=== PATIENT | female | born 1940 | race Caucasian/White ===

== ENCOUNTER 2017-09-15 14:47 | Outpatient (CLI) | payer MEDICARE | END 2017-09-15 14:48 | disposition home or self-care (01) | LOC: BICRAD 14:47 | PROVIDERS: ATTEND Internal Medicine Gastroenterology | DX: K21.9 Gastro-esophageal reflux disease without esophagitis (principal); R13.10 Dysphagia, unspecified; R05 Cough | CPT/HCPCS: 71046 ==

== ENCOUNTER 2017-09-18 07:08 | Outpatient (CLI) | payer MEDICARE ==
--- NOTE | 2017-09-18 10:39 | CT ---
CT CHEST NONCONTRAST: LOW DOSE PULMONARY LUNG SCAN: HISTORY: Lung screening. COPD. Tobacco abuse. FINDINGS: The lungs are hyperinflated with scattered areas of parenchymal scarring. This is most pronounced at the left base, where some linear atelectasis and mild elevation of the left hemidiaphragm is apparen t. Dystrophic calcifications are evident in the areas of scarring. At the left posterolateral base, in the region of scarring, a 0.4 cm, noncalcified nodule lies immedi ately deep to the pleural surface. No other parenchymal nodules. No pleural fluid or pneumothorax. Lack of contrast limits evaluation of the mediastinal structures. Nonenlarged, nonspecific lymph nod es. Prominent arterial calcification, including the coronary arteries. IMPRESSION: 1. Lung-RADS category 1-Negative. Suggest routine followup. 2. Chronic obstructive pulmonary disease. Prominent scarring at the left base may reflect old and r ecurrent inflammatory processes. 3. Atherosclerosis. POS: [facility]
--- NOTE | 2017-09-18 13:15 | RAD ---
BARIUM SWALLOW ESOPHAGRAM DOUBLE CONTRAST: Date: 09/18/17 HISTORY: 77-year-old female with dysphagia. TECHNIQUE: Upright administration of effervescent granules and thick liquid barium. Upright administration of ba rium tablet with water. Straw administration of thin liquid barium in prone BENAVIDEZ position. FINDINGS: The barium tablet becomes temporarily lodged in the pharynx for many seconds, requiring multiple repe at swallows of water to clear, then becomes momentarily lodged in the mid esophagus for a few seconds , then momentarily lodged at the esophagogastric junction for a few seconds, then passes into the sto mach before 1 minute. There is no fixed mechanical stricture. There is mild esophageal dysmotility. N o gross mucosal abnormality identified. No large esophageal diverticulum. No hiatal hernia visualized . Minimal gastroesophageal reflux witnessed momentarily. IMPRESSION: 1. Pharyngeal dysphagia. The barium tablet stays temporarily in the pharynx. Consider consultation w [facility]. 2. Mild esophageal dysmotility. 3. No high grade esophageal stricture. POS: [facility]
== END 2017-09-18 07:09 | disposition home or self-care (01) ==
LOC: RAD 07:08
PROVIDERS: ATTEND Internal Medicine Gastroenterology
DX: F17.210 Nicotine dependence, cigarettes, uncomplicated (principal); K21.9 Gastro-esophageal reflux disease without esophagitis; R13.10 Dysphagia, unspecified; R05 Cough; J44.9 Chronic obstructive pulmonary disease, unspecified; J98.4 Other disorders of lung; I25.10 Atherosclerotic heart disease of native coronary artery without angina pectoris; K22.4 Dyskinesia of esophagus; R13.13 Dysphagia, pharyngeal phase
CPT/HCPCS: 74220; G0297

== ENCOUNTER 2017-11-20 07:55 | Outpatient (CLI) | payer MEDICARE | END 2017-11-20 07:56 | disposition home or self-care (01) | LOC: BICMAMMO 07:55 | PROVIDERS: ATTEND Family Medicine | DX: Z12.31 Encounter for screening mammogram for malignant neoplasm of breast (principal); Z80.3 Family history of malignant neoplasm of breast; Z85.41 Personal history of malignant neoplasm of cervix uteri | CPT/HCPCS: 77063; 77067 ==

== ENCOUNTER 2018-05-26 10:23 | Outpatient (CLI) | payer MEDICARE ==
--- NOTE | 2018-05-27 07:29 | RAD ---
EXAM: XR Foot Lt 3 View STANDARD PROVIDED CLINICAL HISTORY: Left foot pain COMPARISON: None FINDINGS: There is a nondisplaced fracture involving the proximal fifth metatarsal which does not appear to be intra-articular. No additional fracture is evident. Alignment appears anatomic. Joint spaces appear p reserved. IMPRESSION: Fifth metatarsal fracture.
--- NOTE | 2018-05-27 12:22 | RAD ---
EXAM: XR Ankle Lt 3 View STANDARD PROVIDED CLINICAL HISTORY: Pain status post injury COMPARISON: None FINDINGS: Proximal fifth metatarsal fracture. Extensor digitorum brevis avulsion injury is noted. Plantar and p osterior calcaneal views 5 formation is noted. Alignment appears anatomic. Joint spaces appear preser kim. IMPRESSION: 1. Extensor digitorum brevis avulsion fracture. 2. Proximal fifth metatarsal fracture.
== END 2018-05-26 10:24 | disposition home or self-care (01) ==
LOC: SCSRAD 10:23
PROVIDERS: ATTEND Family Medicine
DX: M25.572 Pain in left ankle and joints of left foot (principal); M79.672 Pain in left foot; S92.355A Nondisplaced fracture of fifth metatarsal bone, left foot, initial encounter for closed fracture

== ENCOUNTER 2018-10-15 12:02 | Outpatient (CLI) | payer MEDICARE ==
--- NOTE | 2018-10-15 14:58 | MRI ---
EXAM: Lumbar spine MRI without contrast. 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 The conus medullaris region appears unremarkable. Marked type I endplate changes at L1-L2. Minimal type I endplate changes posteriorly at L2-L3. These changes are new from prior study. Postoperative changes and pedicle screws on the left side at L4 and L5. T12-L1 disc level: Unremarkable. L1-L2 disc level: Marked diffuse disc osteophytosis with moderate to severe lateral recess stenosis a nd bilateral foraminal stenosis. This is a new finding from the prior study. L2-L3 disc level: Diffuse disc osteophytosis with moderate to severe bilateral recess and bilateral f oraminal stenosis. L3-L4 disc level: Diffuse disc osteophytosis with moderately severe central canal, severe lateral rec ess, and moderately severe bilateral foraminal stenosis. L4-L5 disc level: Postoperative changes with mild central canal and lateral recess stenosis and moder ate bilateral foraminal stenosis. L5-S1 disc level: Mild central canal and lateral recess stenosis and foraminal stenosis. IMPRESSION: New fairly extensive disc osteophytosis at L1-L2 with associated stenosis. New type I endplate changes at L1-L2 and L2-L3. Stable postop changes at L4-L5. Stenotic changes at L2-L3 and L3-L4 levels showing some worsening at L3-L4.
--- NOTE | 2018-10-15 15:08 | MRI ---
CERVICAL SPINE MRI WITHOUT CONTRAST: Date: 10/15/18 COMPARISON: None. HISTORY: Cervical radiculopathy, neck pain. TECHNIQUE: Multiplanar, multisequence MR imaging of cervical spine obtained without contrast. FINDINGS: The sagittal STIR imaging demonstrates no focal area of osseous marrow edema. There is mid/moderate degenerative change at the atlantoaxial interspace. C2-3: There is disc space narrowing and disc desiccation with mild disc bulge and bilateral facet hy pertrophy. There is a small superimposed right paracentral disc protrusion. No significant central ca nal stenosis. Mild bilateral neural foraminal stenosis. C3-4: There is disc space narrowing, disc desiccation, and disc bulge with partial effacement of the ventral thecal sac and mild central canal stenosis. There is bilateral facet and uncovertebral osteo phyte formation, right greater than left. Mild bilateral neural foraminal stenosis. C4-5: There is disc space narrowing and disc desiccation with a prominent central disc protrusion ef facing the ventral thecal sac and abutting the ventral aspect of the cord with a moderate/severe degr ee of central canal stenosis and mild cord flattening. There is mild bilateral neural foraminal steno sis on the basis of facet and uncovertebral osteophyte formation. C5-6: There is disc space narrowing, disc desiccation, and disc bulge effacing the ventral thecal sa c and causing moderate central canal stenosis. Moderate bilateral neural foraminal stenosis noted on the basis of facet and uncovertebral osteophyte formation. C6-7: There is disc space narrowing, disc desiccation, and disc bulge with effacement of the ventral thecal sac, and moderate central canal stenosis. Bilateral facet hypertrophy noted with mild/moderat e bilateral neural foraminal stenosis, right greater than left. C7-T1: Disc desiccation and mild disc bulge with no central canal or neural foraminal stenosis. No focal area of abnormal signal intensity is identified within the cervical cord. IMPRESSION: Prominent multilevel degenerative change noted within the cervical spine, most significant at C4-5 as detailed above. POS: [facility]
== END 2018-10-15 12:03 | disposition home or self-care (01) ==
LOC: BICMRI 12:02
PROVIDERS: ATTEND Specialist
DX: M47.22 Other spondylosis with radiculopathy, cervical region (principal); M51.16 Intervertebral disc disorders with radiculopathy, lumbar region; M48.061 Spinal stenosis, lumbar region without neurogenic claudication; Z98.890 Other specified postprocedural states
CPT/HCPCS: 72141; 72148

== ENCOUNTER 2018-11-22 12:33 | Outpatient (CLI) | payer MEDICARE ==
--- NOTE | 2018-11-22 15:50 | MMO ---
Bilateral MAMMO Bilat Screen [facility]. CLINICAL HISTORY: Patient is 78 years old and is seen for screening. The patient has the following family history of breast cancer: sister, BREAST - LUNG. The patient has a history of cervical cancer at age 30. VIEWS: The views performed were: bilateral craniocaudal with tomosynthesis and bilateral mediolateral oblique with tomosynthesis. FILMS COMPARED: The present examination has been compared to prior imaging studies performed at [facility] on 10/02/2014, 10/04/2014, 11/18/2016 and 11/20/2017. This study has been interpreted with the assistance of computer-aided detection. MAMMOGRAM FINDINGS: The breasts are heterogeneously dense, which could obscure a lesion on mammography. Benign calcifications are noted bilaterally. Stable right subaerolar mass. There are no suspicious masses, suspicious calcifications, or new areas of architectural distortion. IMPRESSION: THERE IS NO MAMMOGRAPHIC EVIDENCE OF MALIGNANCY. A ROUTINE FOLLOW-UP MAMMOGRAM IN 1 YEAR IS RECOMMENDED. THE RESULTS OF THIS EXAM WERE SENT TO THE PATIENT. ACR BI-RADS Category 2 - Benign finding MAMMOGRAPHY NOTE: 1. A negative mammogram report should not delay a biopsy if a dominant of clinically suspicious mass is present. 2. Approximately 10% to 15% of breast cancers are not detected by mammography. 3. Adenosis and dense breasts may obscure an underlying neoplasm. Reported by: DAMION FIGUEROA MD Electonically Signed: [id number]
== END 2018-11-22 12:34 | disposition home or self-care (01) ==
LOC: BICMAMMO 12:33
PROVIDERS: ATTEND Family Medicine
DX: Z12.31 Encounter for screening mammogram for malignant neoplasm of breast (principal); Z80.3 Family history of malignant neoplasm of breast; Z85.41 Personal history of malignant neoplasm of cervix uteri
CPT/HCPCS: 77063; 77067

== ENCOUNTER 2019-02-24 10:36 | Outpatient (CLI) | payer MEDICARE ==
--- NOTE | 2019-02-24 11:55 | RAD ---
LUMBAR SPINE RADIOGRAPHS 3 VIEWS: DATE: 02/24/2019. PROVIDED CLINICAL HISTORY: Spondylosis. FINDINGS: Comparison 10/30/2006. Neutral lateral, flexion lateral, and extension lateral radiographs of the lum bar spine are submitted. Lumbar alignment appears normal. There is no evidence for abnormal transla tional motion with flexion and extension. Vertebral body heights are preserved. Postoperative sung es at L4-5 are again seen. Extensive vascular calcifications are noted. Multilevel lumbar degenerat ant disk change. IMPRESSION: As above. POS: [facility]
== END 2019-02-24 10:37 | disposition home or self-care (01) ==
LOC: RAD 10:36
PROVIDERS: ATTEND Nurse Practitioner Family
DX: M47.816 Spondylosis without myelopathy or radiculopathy, lumbar region (principal); M51.36 Other intervertebral disc degeneration, lumbar region; I70.90 Unspecified atherosclerosis; Z98.890 Other specified postprocedural states
CPT/HCPCS: 72100

== ENCOUNTER 2020-10-23 20:09 | Inpatient (IN) | payer MEDICARE ==
[2020-10-23] MEDS ORDERED: Diltiazem 125 MG/25 ML ONE (20:31)
[2020-10-23 21:07] LABS: #Eosinphils 0.2 thou/uL (0.0-0.7); #Lymphocytes 1.2 thou/uL (1.20-3.40); #Monocytes 0.5 thou/uL (0.11-0.59); #Neutrophils 5.5 thou/uL (1.40-6.50); %Basophils 0.4 % (0.0-1.0); %Eosinophils 2.4 % (0.0-10.0); %Lymphocytes 16.6 % (21.0-51.0); %Neutrophils 73.6 % (42.0-75.0); Hemoglobin 14.8 g/dL (12.0-16.0); Mean Corpuscular HGB CONC 33.3 g/dL (32.0-36.0); Mean Corpuscular Hemoglobin 31.5 pg (27.0-31.0); Mean Corpuscular Volume 94.5 fL (78.0-98.0); Mean Platelet Volume 7.7 fL (7.4-10.4); Platelet Count 243 thou/uL (130-400); RBC Distribution Width 12.8 % (11.5-14.5); White Blood Cell (WBC) Count 7.4 thou/uL (4.8-10.8)
[2020-10-23 21:28] LABS: ALT (SGPT) 38 U/L (8-55); AST (SGOT) 38 U/L (5-34); Albumin 3.7 g/dL (3.4-4.8); Alkaline Phosphatase 85 U/L (40-110); Anion Gap 16 mmol/L (10-20); BUN (Urea Nitrogen) 12 mg/dL (9.8-20.1); Bilirubin, Total 0.5 mg/dL (0.2-1.2); Calc. Creatinine Clearance 0 mL/min (70-130); Calcium 9.6 mg/dL (7.8-10.44); Carbon Dioxide 25 mmol/L (23-31); Chloride 98 mmol/L (98-107); Globulin 3.2 g/dL (2.4-3.5); Glucose 107 mg/dL (83-110); Potassium 4.7 mmol/L (3.5-5.1); Protein, Total 6.9 g/dL (5.8-8.1); Sodium 134 mmol/L (136-145)
[2020-10-23] MEDS ORDERED: oxyCODONE ER 20 MG TAB PO SCH (21:30)
[2020-10-23] MEDS ORDERED: Gabapentin 300 MG CAP PO SCH (21:30)
[2020-10-23 23:22] LABS: PTT 31.4 sec (22.9-36.1); Prothrombin Time 13.5 sec (12.0-14.7)
[2020-10-23] MEDS ORDERED: Bisacodyl 5 MG TAB PO PRN (23:29)
[2020-10-23] MEDS ORDERED: Ondansetron ODT 4 MG TAB PO PRN (23:29)
[2020-10-23] MEDS ORDERED: HYDROcodone/Acetaminophen 5/325 mg Tablet PO PRN (23:29)
[2020-10-23] MEDS ORDERED: Senokot S 8.6-50 MG TAB PO PRN (23:29)
[2020-10-23] MEDS ORDERED: HYDROcodone/Acetaminophen 10/325 mg Tablet PO PRN (23:29)
[2020-10-23] MEDS ORDERED: Communication Order-Pharmacy FS ONE (23:41)
[2020-10-23 23:49] LABS: Troponin I 0.013 ng/mL (< 0.028)
[2020-10-24] MEDS ORDERED: Melatonin 3 MG TAB PO PRN (00:05)
[2020-10-24] MEDS ORDERED: Labetalol HCl 100 MG/20 ML VIAL SLOW IVP PRN (00:06)
[2020-10-24] MEDS ORDERED: Diltiazem 125 MG in Sodium Chloride 0.9% 100 ML IVPB SCH (00:15)
[2020-10-24] MEDS ORDERED: Fluticasone Propionate Nasal Spray 16 gm Bottle NASAL PRN (00:28)
[2020-10-24] MEDS ORDERED: Enoxaparin Sodium 60 MG/0.6 ML SYRINGE ONE ×2 (00:34→08:59)
[2020-10-24 00:45] LABS: SARS-CoV-2 NAA Rapid Test Not Detected (NotDetected)
[2020-10-24] MEDS ORDERED: Furosemide 40 MG/4 ML VIAL SLOW IVP SCH (02:30)
[2020-10-24] MEDS: Nicotine 21 MG PATCH TD SCH (02:51)
[2020-10-24] MEDS ORDERED: Furosemide 40 MG/4 ML VIAL ONE (02:52)
[2020-10-24] MEDS ORDERED: Furosemide 20 MG/2 ML VIAL ONE ×2 (02:53→08:59)
[2020-10-24 03:10] LABS: #Eosinphils 0.1 thou/uL (0.0-0.7); #Lymphocytes 1.4 thou/uL (1.20-3.40); #Monocytes 0.5 thou/uL (0.11-0.59); %Basophils 0.6 % (0.0-1.0); %Eosinophils 1.8 % (0.0-10.0); %Lymphocytes 19.9 % (21.0-51.0); %Monocytes 7.5 % (0.0-10.0); %Neutrophils 70.2 % (42.0-75.0); Hemoglobin 13.8 g/dL (12.0-16.0); Mean Corpuscular HGB CONC 32.2 g/dL (32.0-36.0); Mean Corpuscular Hemoglobin 30.9 pg (27.0-31.0); Mean Corpuscular Volume 95.8 fL (78.0-98.0); Mean Platelet Volume 7.9 fL (7.4-10.4); Platelet Count 212 thou/uL (130-400); RBC Distribution Width 12.8 % (11.5-14.5); Red Blood Cell (RBC) Count 4.47 mill/uL (4.20-5.40); White Blood Cell (WBC) Count 7.1 thou/uL (4.8-10.8)
[2020-10-24 03:30] LABS: ALT (SGPT) 35 U/L (8-55); AST (SGOT) 32 U/L (5-34); Albumin 3.3 g/dL (3.4-4.8); Alkaline Phosphatase 68 U/L (40-110); Anion Gap 13 mmol/L (10-20); BUN (Urea Nitrogen) 11 mg/dL (9.8-20.1); Bilirubin, Total 0.4 mg/dL (0.2-1.2); Calc. Creatinine Clearance 50 mL/min (70-130); Calcium 8.9 mg/dL (7.8-10.44); Carbon Dioxide 22 mmol/L (23-31); Chloride 101 mmol/L (98-107); Globulin 2.7 g/dL (2.4-3.5); Glucose 97 mg/dL (83-110); Potassium 4.4 mmol/L (3.5-5.1); Sodium 132 mmol/L (136-145)
[2020-10-24 03:34] LABS: Troponin I Less than 0.010 ng/mL (< 0.028)
[2020-10-24] MEDS ORDERED: Aspirin Chewable 81 MG TAB ONE (08:59)
[2020-10-24] MEDS ORDERED: Nitroglycerin 0.4 MG TAB (25 Tab Bottle) SL PRN (09:19)
[2020-10-24] MEDS ORDERED: Benzonatate 100 MG CAP PO PRN (09:24)
[2020-10-24] MEDS: Polyethylene Glycol 3350 17 GM Packet PO SCH (09:58)
[2020-10-24] MEDS: Furosemide 20 MG/2 ML VIAL SLOW IVP SCH ×2 (09:58→17:42)
[2020-10-24] MEDS: Aspirin 81 mg Enteric Coated Tablet PO SCH (09:58)
[2020-10-24] MEDS: Enoxaparin Sodium 60 MG/0.6 ML SYRINGE SC SCH ×2 (09:58→21:38)
[2020-10-24 10:09] LABS: Troponin I 0.018 ng/mL (< 0.028)
[2020-10-24] MEDS ORDERED: cefTRIAXone\\ROCEPHIN 1 GM in Sodium Chloride 0.9% 100 ML IVPB SCH ×2 (11:00→18:00)
[2020-10-24] MEDS ORDERED: traMADol HCl 50 MG TAB PO PRN (12:30)
[2020-10-24] MEDS: Levothyroxine Sodium 75 MCG TAB PO SCH (12:39)
[2020-10-24] MEDS ORDERED: Azithromycin 500 MG VIAL ONE (12:49)
[2020-10-24] MEDS: Azithromycin 500 MG in Sodium Chloride 0.9% 250 ML 250 ML IVPB SCH (13:13)
[2020-10-24 15:32] VITALS: BMI 17.4
[2020-10-24] MEDS ORDERED: Diltiazem HCl SR 60 mg Capsule PO SCH (21:00)
[2020-10-25] MEDS: Nicotine 21 MG PATCH TD SCH ×2 (00:09→23:07)
[2020-10-25 05:20] LABS: #Eosinphils 0.1 thou/uL (0.0-0.7); #Lymphocytes 1.1 thou/uL (1.20-3.40); #Monocytes 0.6 thou/uL (0.11-0.59); #Neutrophils 5.7 thou/uL (1.40-6.50); %Basophils 0.5 % (0.0-1.0); %Eosinophils 1.7 % (0.0-10.0); %Lymphocytes 14.2 % (21.0-51.0); %Monocytes 8.2 % (0.0-10.0); %Neutrophils 75.4 % (42.0-75.0); Hemoglobin 14.2 g/dL (12.0-16.0); Mean Corpuscular HGB CONC 31.2 g/dL (32.0-36.0); Mean Corpuscular Hemoglobin 29.5 pg (27.0-31.0); Mean Corpuscular Volume 94.5 fL (78.0-98.0); Mean Platelet Volume 7.7 fL (7.4-10.4); Platelet Count 222 thou/uL (130-400); RBC Distribution Width 12.5 % (11.5-14.5); Red Blood Cell (RBC) Count 4.81 mill/uL (4.20-5.40); White Blood Cell (WBC) Count 7.5 thou/uL (4.8-10.8)
[2020-10-25 05:43] LABS: Anion Gap 10 mmol/L (10-20); BUN (Urea Nitrogen) 12 mg/dL (9.8-20.1); Calc. Creatinine Clearance 52 mL/min (70-130); Carbon Dioxide 32 mmol/L (23-31); Chloride 98 mmol/L (98-107); Glucose 89 mg/dL (83-110); Sodium 137 mmol/L (136-145)
[2020-10-25 05:47] LABS: Potassium 2.9 mmol/L (3.5-5.1)
[2020-10-25] MEDS: Levothyroxine Sodium 75 MCG TAB PO SCH (05:47)
[2020-10-25] MEDS ORDERED: Potassium Chloride 20 MEQ TAB PO SCH (06:15)
[2020-10-25] MEDS ORDERED: Diltiazem 125 MG in Sodium Chloride 0.9% 100 ML IVPB SCH (06:24)
[2020-10-25 08:14] LABS: Bacteria/HPF None Seen HPF (None Seen); Bilirubin Negative (Negative); Blood, Urine Negative (Negative); Clarity Clear (Clear); Glucose, Urine (Dipstick) Normal (Negative); Ketone, Urine Trace mg/dL (Negative); Leukocyte Negative Leu/uL (Negative); Nitrite Negative (Negative); Protein, Urine (Dipstick) Negative (Neg-Trace); RBC/HPF 0-3 HPF (0-3); Specific Gravity, Urine 1.011 (1.002-1.036); Squamous Epithelial 0-3 HPF (0-3); Urobilinogen Normal mg/dL (Less than 2); WBC/HPF 0-3 HPF (0-3)
[2020-10-25 08:16] LABS: Urine Culture Reflex No No
[2020-10-25 08:20] LABS: Strep pneumo Urine Ag NEGATIVE (NEGATIVE)
[2020-10-25] MEDS: Enoxaparin Sodium 60 MG/0.6 ML SYRINGE SC SCH ×2 (08:28→23:08)
[2020-10-25] MEDS: Polyethylene Glycol 3350 17 GM Packet PO SCH (08:28)
[2020-10-25] MEDS: Diltiazem HCl SR 60 mg Capsule PO SCH ×3 (08:29→23:08)
[2020-10-25] MEDS: Furosemide 20 MG/2 ML VIAL SLOW IVP SCH ×2 (08:29→17:23)
[2020-10-25] MEDS: Aspirin 81 mg Enteric Coated Tablet PO SCH (08:29)
[2020-10-25] MEDS: Gabapentin 300 MG CAP PO SCH (08:29)
[2020-10-25] MEDS: Azithromycin 500 MG in Sodium Chloride 0.9% 250 ML 250 ML IVPB SCH (10:20)
[2020-10-25] MEDS: Acetaminophen 325 MG TAB PO PRN (18:55)
[2020-10-25] MEDS ORDERED: VYTORIN PO SCH (21:00)
[2020-10-25] MEDS ORDERED: Gabapentin 300 MG CAP PO SCH (22:45)
[2020-10-25] MEDS: Cefdinir 300 MG CAP PO SCH (23:07)
[2020-10-26] MEDS: Levothyroxine Sodium 75 MCG TAB PO SCH (05:25)
[2020-10-26] MEDS ORDERED: Diltiazem HCl SR 60 mg Capsule PO SCH ×2 (06:00→06:14)
[2020-10-26] MEDS: Gabapentin 300 MG CAP PO SCH (08:20)
[2020-10-26] MEDS: Cefdinir 300 MG CAP PO SCH (08:21)
[2020-10-26] MEDS: Polyethylene Glycol 3350 17 GM Packet PO SCH (08:21)
[2020-10-26] MEDS: Aspirin 81 mg Enteric Coated Tablet PO SCH (08:21)
[2020-10-26] MEDS: Enoxaparin Sodium 60 MG/0.6 ML SYRINGE SC SCH (08:21)
[2020-10-26] MEDS: Furosemide 20 MG/2 ML VIAL SLOW IVP SCH (08:21)
[2020-10-26] MEDS ORDERED: Diltiazem HCl SR 90 mg Capsule PO SCH ×2 (08:45→14:00)
[2020-10-26] MEDS ORDERED: Azithromycin 250 MG TAB PO SCH (10:00)
[2020-10-26 12:16] LABS: #Lymphocytes 0.7 thou/uL (1.20-3.40); #Monocytes 0.4 thou/uL (0.11-0.59); #Neutrophils 4.9 thou/uL (1.40-6.50); %Basophils 0.7 % (0.0-1.0); %Eosinophils 0.6 % (0.0-10.0); %Lymphocytes 12.1 % (21.0-51.0); %Monocytes 6.3 % (0.0-10.0); %Neutrophils 80.3 % (42.0-75.0); Hemoglobin 13.8 g/dL (12.0-16.0); Mean Corpuscular HGB CONC 32.3 g/dL (32.0-36.0); Mean Corpuscular Hemoglobin 30.9 pg (27.0-31.0); Mean Corpuscular Volume 95.8 fL (78.0-98.0); Mean Platelet Volume 7.9 fL (7.4-10.4); Platelet Count 227 thou/uL (130-400); RBC Distribution Width 12.7 % (11.5-14.5); Red Blood Cell (RBC) Count 4.46 mill/uL (4.20-5.40); White Blood Cell (WBC) Count 6.1 thou/uL (4.8-10.8)
[2020-10-26 12:40] LABS: BUN (Urea Nitrogen) 12 mg/dL (9.8-20.1); Calc. Creatinine Clearance 42 mL/min (70-130); Calcium 8.9 mg/dL (7.8-10.44); Carbon Dioxide 34 mmol/L (23-31); Chloride 96 mmol/L (98-107); Glucose 186 mg/dL (83-110); Potassium 3.6 mmol/L (3.5-5.1); Sodium 137 mmol/L (136-145)
[2020-10-26 12:46] LABS: Anion Gap 11 mmol/L (10-20)
[2020-10-26] MEDS: Acetaminophen 325 MG TAB PO PRN (15:09)
[2020-10-26 15:46] VITALS: TEMP 98.3
[2020-10-26 16:18] VITALS: BP 123/64
[2020-10-26] MEDS ORDERED: Apixaban 2.5 MG TAB PO SCH (21:00)
[2020-10-26] MEDS ORDERED: Gabapentin 300 MG CAP PO SCH (21:00)
[2020-10-26] MEDS ORDERED: Nicotine 21 MG PATCH TD SCH (22:00)
[2020-10-27 13:38] LABS: L.pneumophilia Abs <0.91 OD ratio (0.00-0.90)
== END 2020-10-26 16:55 | disposition home or self-care (01) | DRG 280 ==
LOC: ERS 20:09 → ERHOLD 22:30 → 2NO 10-24 14:10
PROVIDERS: ADMIT Student in an Organized Health Care Education/Training Program; ATTEND Internal Medicine
DX: I48.91 Unspecified atrial fibrillation (principal); J18.9 Pneumonia, unspecified organism; I21.A1 Myocardial infarction type 2; J96.01 Acute respiratory failure with hypoxia; J44.1 Chronic obstructive pulmonary disease with (acute) exacerbation; J44.0 Chronic obstructive pulmonary disease with (acute) lower respiratory infection; E87.1 Hypo-osmolality and hyponatremia; I11.0 Hypertensive heart disease with heart failure; Z66 Do not resuscitate; Z20.822 Contact with and (suspected) exposure to COVID-19; G89.29 Other chronic pain; I73.9 Peripheral vascular disease, unspecified; E03.9 Hypothyroidism, unspecified; I50.9 Heart failure, unspecified; Z96.641 Presence of right artificial hip joint; Z96.611 Presence of right artificial shoulder joint; Z96.1 Presence of intraocular lens; F17.210 Nicotine dependence, cigarettes, uncomplicated; M19.90 Unspecified osteoarthritis, unspecified site; F41.9 Anxiety disorder, unspecified; E87.6 Hypokalemia; I34.0 Nonrheumatic mitral (valve) insufficiency; E88.09 Other disorders of plasma-protein metabolism, not elsewhere classified; Z90.49 Acquired absence of other specified parts of digestive tract; Z90.710 Acquired absence of both cervix and uterus; Z88.2 Allergy status to sulfonamides; Z88.8 Allergy status to other drugs, medicaments and biological substances; Z88.1 Allergy status to other antibiotic agents; Z91.030 Bee allergy status; Z79.82 Long term (current) use of aspirin; Z79.51 Long term (current) use of inhaled steroids; Z79.899 Other long term (current) drug therapy; Z71.6 Tobacco abuse counseling; E87.70 Fluid overload, unspecified
CPT/HCPCS: 36415; 71045; 80048; 80053; 81001; 83880; 84443; 84484; 85025; 85610; 85730; 86713; 87040; 87449; 93005; 93306; 96365; 96366; 96372; 96376; J0456; J0696; J1650; J1940; J3490; J7050; U0002

== ENCOUNTER 2021-02-14 12:48 | Outpatient (CLI) | payer MEDICARE ==
[2021-02-14 14:18] LABS: #Basophils 0.1 10x3/uL (0.0-0.2); #Eosinphils 0.1 10x3/uL (0.0-0.5); #Monocytes 0.7 10x3/uL (0.0-1.1); #Neutrophils 4.7 10x3/uL (1.5-8.4); %Basophils 1.2 % (0.0-2.0); %Eosinophils 0.7 % (0.0-6.0); %Lymphocytes 19.6 % (18.0-47.0); %Monocytes 9.8 % (0.0-10.0); %Neutrophils 68.3 % (40.0-75.0); Hemoglobin 12.3 g/dL (12.0-15.5); Mean Corpuscular HGB CONC 31.8 g/dL (32.0-36.0); Mean Corpuscular Hemoglobin 28.6 pg (27.0-33.0); Mean Platelet Volume 9.9 fl (7.4-10.4); Platelet Count 345 10x3/uL (150-450); White Blood Cell (WBC) Count 6.9 10x3/uL (3.5-10.5)
[2021-02-14 14:44] LABS: Anion Gap 14 mmol/L (10-20); BUN (Urea Nitrogen) 9 mg/dL (9.8-20.1); Calc. Creatinine Clearance 0 mL/min (70-130); Calcium 8.8 mg/dL (7.8-10.44); Carbon Dioxide 31 mmol/L (23-31); Chloride 95 mmol/L (98-107); Glucose 86 mg/dL (83-110); Potassium 3.7 mmol/L (3.5-5.1); Sodium 136 mmol/L (136-145)
[2021-02-14 16:54] LABS: Hemoglobin A1c 6.1 % (4.0-6.0)
[2021-02-15 11:36] LABS: SARS-CoV-2 PCR by NAA Not Detected (NotDetected)
== END 2021-02-14 12:49 | disposition home or self-care (01) ==
LOC: LABBT 12:48
PROVIDERS: ATTEND Specialist
DX: Z01.818 Encounter for other preprocedural examination (principal); K62.3 Rectal prolapse; Z20.822 Contact with and (suspected) exposure to COVID-19
CPT/HCPCS: 80048; 83036; 85025; 93005; U0003; U0005; 93010

== ENCOUNTER 2021-02-14 13:00 | Inpatient (IN) | payer MEDICARE ==
[2021-02-19] MEDS ORDERED: cefOXitin Sodium/Dextrose 2 GM/50 ML BAG ONE ×2 (06:23→10:22)
[2021-02-19] MEDS ORDERED: Acetaminophen 500 MG TAB ONE (06:23)
[2021-02-19] MEDS ORDERED: Sodium Chloride 0.9% 0 ML ONE (06:23)
[2021-02-19] MEDS ORDERED: Ketorolac Tromethamine 30 MG/ML VIAL ONE ×2 (06:23→17:11)
[2021-02-19] MEDS ORDERED: Bupivacaine 0.5% 10 ML VIAL ONE (06:35)
[2021-02-19] MEDS ORDERED: Fentanyl 100 MCG/2 ML VIAL ONE ×5 (06:37→12:22)
[2021-02-19] MEDS ORDERED: Lidocaine 1% (PF) 30 ML VIAL ONE (06:37)
[2021-02-19] MEDS ORDERED: Bupivacaine PF 0.5% 30 ML VIAL ONE (06:37)
[2021-02-19] MEDS ORDERED: Midazolam HCl 2 mg/2 ml Vial ONE (06:37)
[2021-02-19] MEDS ORDERED: Famotidine/PF 20 mg/2ml Vial ONE (06:52)
[2021-02-19] MEDS ORDERED: Xylocaine 1% w/ Epi 1:100K 10 ML VIAL ONE ×2 (07:10→07:48)
[2021-02-19] MEDS ORDERED: Bupivacaine 0.25% 10 ML VIAL ONE ×3 (07:10→07:16)
[2021-02-19] MEDS ORDERED: Dexamethasone 4 mg/ml Vial ONE (07:14)
[2021-02-19] MEDS ORDERED: Phenylephrine 10 MG/ML VIAL ONE ×2 (07:46→07:56)
[2021-02-19] MEDS ORDERED: Ondansetron PF 4 MG/2 ML Vial ONE (07:56)
[2021-02-19] MEDS ORDERED: Dexamethasone 20 MG/5 ML VIAL ONE (07:56)
[2021-02-19] MEDS ORDERED: Lidocaine 1% PF 5 ML VIAL ONE (07:56)
[2021-02-19] MEDS ORDERED: PROPOFOL 200 MG/20 ML VIAL ONE (07:56)
[2021-02-19] MEDS ORDERED: Glycopyrrolate 0.2 MG/ML 5 ML SYRINGE ONE (07:56)
[2021-02-19] MEDS ORDERED: Rocuronium Bromide 10 MG/ML (10ML VIAL) ONE (07:56)
[2021-02-19] MEDS ORDERED: Metoprolol Tartrate 5 MG/5 ML VIAL ONE (07:56)
[2021-02-19] MEDS ORDERED: Promethazine HCl 25 MG/ML VIAL IVPB PRN (10:27)
[2021-02-19] MEDS ORDERED: PACU-Morphine 4MG/ML VIAL SLOW IVP PRN (10:27)
[2021-02-19] MEDS ORDERED: Promethazine HCl 25 MG/ML VIAL IM PRN ×2 (10:27→11:28)
[2021-02-19] MEDS ORDERED: Ondansetron PF 4 MG/2 ML Vial IVP PRN (11:28)
[2021-02-19] MEDS ORDERED: hydrALAZINE 20 MG/ML VIAL SLOW IVP PRN (11:28)
[2021-02-19] MEDS ORDERED: Insulin Regular 300 UNITS/3 ML VIAL SC PRN (11:28)
[2021-02-19] MEDS ORDERED: Morphine 4 MG/ML VIAL ONE ×3 (11:59→17:11)
[2021-02-19] MEDS ORDERED: Dextrose 50% Abboject 50 ML SYRINGE IVP PRN (12:00)
[2021-02-19] MEDS ORDERED: Dextrose 5% in Water 1,000 ML IV PRN (12:00)
[2021-02-19] MEDS: Morphine 4 MG/ML VIAL SLOW IVP PRN ×2 (13:56→21:53)
[2021-02-19] MEDS ORDERED: Fluticasone Propionate Nasal Spray 16 gm Bottle NASAL PRN (14:01)
[2021-02-19] MEDS ORDERED: D5 1/2 NS w/20 mEq KCL 1,000 ML ONE (19:11)
[2021-02-19] MEDS ORDERED: Sodium Chloride 0.9% 10 ML ONE (19:16)
[2021-02-19] MEDS ORDERED: HYDROcodone/Acetaminophen 5/325 mg Tablet ONE (19:18)
[2021-02-19] MEDS: D5 1/2 NS w/20 mEq KCL 1,000 ML IV SCH ×2 (21:49→22:06)
[2021-02-19] MEDS: Ketorolac Tromethamine 30 MG/ML VIAL IVP SCH (21:49)
[2021-02-19] MEDS: Gabapentin 300 MG CAP PO SCH (21:54)
[2021-02-19] MEDS: Famotidine 20 MG TAB PO SCH (21:54)
[2021-02-19] MEDS: Famotidine/PF 20 mg/2ml Vial SLOW IVP SCH (21:54)
[2021-02-20] MEDS: Ketorolac Tromethamine 30 MG/ML VIAL IVP SCH ×4 (00:39→17:40)
[2021-02-20] MEDS: Enoxaparin Sodium 30 MG/0.3 ML SYRINGE SC SCH ×2 (00:51→22:04)
[2021-02-20 01:38] VITALS: BMI 19.5
[2021-02-20] MEDS: Morphine 4 MG/ML VIAL SLOW IVP PRN ×3 (03:42→13:18)
[2021-02-20 04:40] LABS: #Lymphocytes 0.6 thou/uL (1.20-3.40); #Monocytes 0.6 thou/uL (0.11-0.59); #Neutrophils 12.9 thou/uL (1.40-6.50); %Eosinophils 0.1 % (0.0-10.0); %Lymphocytes 4.5 % (21.0-51.0); %Monocytes 4.5 % (0.0-10.0); Hemoglobin 10.9 g/dL (12.0-16.0); Mean Corpuscular Hemoglobin 30.1 pg (27.0-31.0); Mean Corpuscular Volume 91.2 fL (78.0-98.0); Mean Platelet Volume 6.7 fL (7.4-10.4); Platelet Count 298 thou/uL (130-400); RBC Distribution Width 13.4 % (11.5-14.5); Red Blood Cell (RBC) Count 3.63 mill/uL (4.20-5.40); White Blood Cell (WBC) Count 14.2 thou/uL (4.8-10.8)
[2021-02-20 05:04] LABS: Anion Gap 12 mmol/L (10-20); BUN (Urea Nitrogen) 18 mg/dL (9.8-20.1); Calc. Creatinine Clearance 32 mL/min (70-130); Calcium 8.7 mg/dL (7.8-10.44); Carbon Dioxide 28 mmol/L (23-31); Chloride 89 mmol/L (98-107); Glucose 197 mg/dL (83-110); Potassium 3.8 mmol/L (3.5-5.1); Sodium 125 mmol/L (136-145)
[2021-02-20] MEDS: Levothyroxine Sodium 75 MCG TAB PO SCH (05:21)
[2021-02-20] MEDS ORDERED: NS 0.9% w/ 20 MEQ KCL 1,000 ML/1,000 ML BAG IV SCH (08:00)
[2021-02-20] MEDS: Gabapentin 300 MG CAP PO SCH ×2 (10:02→20:55)
[2021-02-20] MEDS: NS 0.9% w/ 20 MEQ KCL 1,000 ML/1,000 ML BAG IV SCH ×2 (10:07→17:41)
[2021-02-20] MEDS: D5 1/2 NS w/20 mEq KCL 1,000 ML IV SCH (18:33)
[2021-02-20] MEDS: Famotidine/PF 20 mg/2ml Vial SLOW IVP SCH (20:55)
[2021-02-20] MEDS: Famotidine 20 MG TAB PO SCH (20:59)
[2021-02-21] MEDS: Ketorolac Tromethamine 30 MG/ML VIAL IVP SCH ×2 (00:11→05:34)
[2021-02-21] MEDS: NS 0.9% w/ 20 MEQ KCL 1,000 ML/1,000 ML BAG IV SCH (02:20)
[2021-02-21] MEDS: Levothyroxine Sodium 75 MCG TAB PO SCH (05:34)
[2021-02-21 06:45] LABS: Anion Gap 14 mmol/L (10-20); BUN (Urea Nitrogen) 27 mg/dL (9.8-20.1); Calc. Creatinine Clearance 24 mL/min (70-130); Calcium 8.6 mg/dL (7.8-10.44); Carbon Dioxide 23 mmol/L (23-31); Chloride 93 mmol/L (98-107); Glucose 75 mg/dL (83-110); Potassium 5.5 mmol/L (3.5-5.1); Sodium 124 mmol/L (136-145)
[2021-02-21] MEDS: Morphine 4 MG/ML VIAL SLOW IVP PRN ×3 (06:53→21:29)
[2021-02-21] MEDS ORDERED: Sodium Chloride 0.9% 1,000 ML IV SCH (09:15)
[2021-02-21] MEDS: Gabapentin 300 MG CAP PO SCH ×2 (10:39→21:21)
[2021-02-21] MEDS ORDERED: Acetaminophen 650 MG/20.3 ML UDCUP PO PRN (10:45)
[2021-02-21 14:09] LABS: #Lymphocytes 1.4 thou/uL (1.20-3.40); #Monocytes 1.1 thou/uL (0.11-0.59); #Neutrophils 9.7 thou/uL (1.40-6.50); %Basophils 0.3 % (0.0-1.0); %Eosinophils 0.1 % (0.0-10.0); %Lymphocytes 11.7 % (21.0-51.0); %Monocytes 8.8 % (0.0-10.0); %Neutrophils 79.1 % (42.0-75.0); Hemoglobin 13.6 g/dL (12.0-16.0); Mean Corpuscular HGB CONC 31.7 g/dL (32.0-36.0); Mean Corpuscular Hemoglobin 30.2 pg (27.0-31.0); Mean Corpuscular Volume 95.4 fL (78.0-98.0); Mean Platelet Volume 7.3 fL (7.4-10.4); Platelet Count 299 thou/uL (130-400); RBC Distribution Width 13.9 % (11.5-14.5); White Blood Cell (WBC) Count 12.2 thou/uL (4.8-10.8)
[2021-02-21 14:28] LABS: ALT (SGPT) 382 U/L (8-55); AST (SGOT) 757 U/L (5-34); Alkaline Phosphatase 95 U/L (40-110); Anion Gap 15 mmol/L (10-20); BUN (Urea Nitrogen) 27 mg/dL (9.8-20.1); Bilirubin, Total 0.5 mg/dL (0.2-1.2); Calc. Creatinine Clearance 25 mL/min (70-130); Calcium 8.6 mg/dL (7.8-10.44); Carbon Dioxide 20 mmol/L (23-31); Chloride 91 mmol/L (98-107); Globulin 3.2 g/dL (2.4-3.5); Glucose 100 mg/dL (83-110); Potassium 5.5 mmol/L (3.5-5.1); Protein, Total 6.2 g/dL (5.8-8.1); Sodium 120 mmol/L (136-145)
[2021-02-21] MEDS ORDERED: LOKELMA 10 GM PACKET PO SCH (17:15)
[2021-02-21] MEDS ORDERED: Furosemide 40 MG/4 ML VIAL SLOW IVP SCH (17:45)
[2021-02-21] MEDS ORDERED: Diltiazem HCl 125 MG, Admixture Fee 1 EACH in Sodium Chloride 0.9% 100 ML IVPB SCH (20:45)
[2021-02-21] MEDS: Ezetimibe 10 MG TAB PO SCH (21:21)
[2021-02-21] MEDS: Famotidine 20 MG TAB PO SCH (21:22)
[2021-02-21] MEDS: Enoxaparin Sodium 30 MG/0.3 ML SYRINGE SC SCH (21:25)
[2021-02-21] MEDS: Famotidine/PF 20 mg/2ml Vial SLOW IVP SCH (21:26)
[2021-02-22] MEDS: Morphine 4 MG/ML VIAL SLOW IVP PRN ×5 (04:21→21:02)
[2021-02-22 04:52] LABS: ALT (SGPT) 296 U/L (8-55); AST (SGOT) 347 U/L (5-34); Albumin 2.9 g/dL (3.4-4.8); Alkaline Phosphatase 94 U/L (40-110); Anion Gap 11 mmol/L (10-20); BUN (Urea Nitrogen) 20 mg/dL (9.8-20.1); Bilirubin, Total 0.5 mg/dL (0.2-1.2); Calc. Creatinine Clearance 44 mL/min (70-130); Calcium 8.9 mg/dL (7.8-10.44); Carbon Dioxide 30 mmol/L (23-31); Chloride 95 mmol/L (98-107); Globulin 2.8 g/dL (2.4-3.5); Glucose 93 mg/dL (83-110); Potassium 4.5 mmol/L (3.5-5.1); Protein, Total 5.7 g/dL (5.8-8.1); Sodium 131 mmol/L (136-145)
[2021-02-22] MEDS: Levothyroxine Sodium 75 MCG TAB PO SCH (05:24)
[2021-02-22] MEDS ORDERED: Furosemide 40 MG/4 ML VIAL SLOW IVP SCH (06:00)
[2021-02-22 06:34] LABS: #Lymphocytes 0.8 thou/uL (1.20-3.40); #Monocytes 0.4 thou/uL (0.11-0.59); #Neutrophils 5.5 thou/uL (1.40-6.50); %Basophils 0.2 % (0.0-1.0); %Eosinophils 0.4 % (0.0-10.0); %Lymphocytes 11.9 % (21.0-51.0); %Monocytes 6.5 % (0.0-10.0); %Neutrophils 81.1 % (42.0-75.0); Hemoglobin 12.9 g/dL (12.0-16.0); Mean Corpuscular HGB CONC 33.6 g/dL (32.0-36.0); Mean Corpuscular Hemoglobin 30.4 pg (27.0-31.0); Mean Corpuscular Volume 90.6 fL (78.0-98.0); Mean Platelet Volume 7.2 fL (7.4-10.4); Platelet Count 295 thou/uL (130-400); RBC Distribution Width 13.7 % (11.5-14.5); Red Blood Cell (RBC) Count 4.24 mill/uL (4.20-5.40); White Blood Cell (WBC) Count 6.8 thou/uL (4.8-10.8)
[2021-02-22] MEDS: Gabapentin 300 MG CAP PO SCH ×2 (09:50→21:01)
[2021-02-22] MEDS ORDERED: Diltiazem 125 MG in Sodium Chloride 0.9% 100 ML IVPB SCH (13:30)
[2021-02-22] MEDS: Digoxin 0.25 MG TAB PO SCH ×2 (13:43→18:24)
[2021-02-22 15:01] LABS: Anion Gap 11 mmol/L (10-20); BUN (Urea Nitrogen) 20 mg/dL (9.8-20.1); Calc. Creatinine Clearance 46 mL/min (70-130); Calcium 8.9 mg/dL (7.8-10.44); Carbon Dioxide 34 mmol/L (23-31); Chloride 93 mmol/L (98-107); Glucose 90 mg/dL (83-110); Potassium 3.9 mmol/L (3.5-5.1); Sodium 134 mmol/L (136-145)
[2021-02-22] MEDS: HYDROcodone/Acetaminophen 7.5/325 mg Tablet PO PRN (16:25)
[2021-02-22] MEDS: Famotidine 20 MG TAB PO SCH (21:01)
[2021-02-22] MEDS: Ezetimibe 10 MG TAB PO SCH (21:02)
[2021-02-22] MEDS: Famotidine/PF 20 mg/2ml Vial SLOW IVP SCH (21:04)
[2021-02-22] MEDS: Enoxaparin Sodium 30 MG/0.3 ML SYRINGE SC SCH (21:25)
[2021-02-23] MEDS: Digoxin 0.25 MG TAB PO SCH ×2 (00:48→07:30)
[2021-02-23] MEDS: Morphine 4 MG/ML VIAL SLOW IVP PRN ×3 (03:57→09:47)
[2021-02-23] MEDS: Levothyroxine Sodium 75 MCG TAB PO SCH (06:27)
[2021-02-23] MEDS ORDERED: Furosemide 20 MG/2 ML VIAL SLOW IVP SCH ×2 (09:00→15:00)
[2021-02-23] MEDS ORDERED: Digoxin 0.125 MG TAB PO SCH (09:00)
[2021-02-23] MEDS: Gabapentin 300 MG CAP PO SCH ×2 (09:46→20:35)
[2021-02-23 10:39] LABS: Anion Gap 13 mmol/L (10-20); BUN (Urea Nitrogen) 13 mg/dL (9.8-20.1); Calc. Creatinine Clearance 53 mL/min (70-130); Calcium 8.8 mg/dL (7.8-10.44); Carbon Dioxide 32 mmol/L (23-31); Chloride 92 mmol/L (98-107); Glucose 86 mg/dL (83-110); Potassium 4.2 mmol/L (3.5-5.1); Sodium 133 mmol/L (136-145)
[2021-02-23] MEDS: HYDROcodone/Acetaminophen 7.5/325 mg Tablet PO PRN (14:49)
[2021-02-23] MEDS: Famotidine/PF 20 mg/2ml Vial SLOW IVP SCH (19:59)
[2021-02-23] MEDS: Ezetimibe 10 MG TAB PO SCH (20:35)
[2021-02-23] MEDS: Famotidine 20 MG TAB PO SCH (20:36)
[2021-02-23] MEDS: Enoxaparin Sodium 30 MG/0.3 ML SYRINGE SC SCH (21:05)
[2021-02-24] MEDS: Morphine 4 MG/ML VIAL SLOW IVP PRN ×3 (04:06→20:42)
[2021-02-24 05:57] LABS: Anion Gap 10 mmol/L (10-20); BUN (Urea Nitrogen) 16 mg/dL (9.8-20.1); Calc. Creatinine Clearance 53 mL/min (70-130); Calcium 8.4 mg/dL (7.8-10.44); Carbon Dioxide 34 mmol/L (23-31); Chloride 94 mmol/L (98-107); Glucose 87 mg/dL (83-110); Potassium 3.8 mmol/L (3.5-5.1); Sodium 134 mmol/L (136-145)
[2021-02-24] MEDS ORDERED: Digoxin 0.125 MG TAB PO SCH (09:00)
[2021-02-24] MEDS: Gabapentin 300 MG CAP PO SCH ×2 (10:00→20:43)
[2021-02-24] MEDS ORDERED: Furosemide 20 MG TAB PO SCH ×2 (10:30→14:00)
[2021-02-24] MEDS ORDERED: Furosemide 40 MG TAB PO SCH (10:30)
[2021-02-24] MEDS ORDERED: Potassium Chloride 10 MEQ TAB PO SCH (10:30)
[2021-02-24] MEDS: Furosemide 40 MG TAB PO SCH (15:15)
[2021-02-24 19:05] LABS: #Eosinphils 0.1 thou/uL (0.0-0.7); #Lymphocytes 1.1 thou/uL (1.20-3.40); #Monocytes 0.7 thou/uL (0.11-0.59); #Neutrophils 7.2 thou/uL (1.40-6.50); %Basophils 0.2 % (0.0-1.0); %Eosinophils 0.8 % (0.0-10.0); %Lymphocytes 12.5 % (21.0-51.0); %Monocytes 7.2 % (0.0-10.0); %Neutrophils 79.3 % (42.0-75.0); Hemoglobin 11.7 g/dL (12.0-16.0); Mean Corpuscular HGB CONC 32.9 g/dL (32.0-36.0); Mean Corpuscular Hemoglobin 30.3 pg (27.0-31.0); Mean Platelet Volume 6.5 fL (7.4-10.4); Platelet Count 338 thou/uL (130-400); RBC Distribution Width 13.6 % (11.5-14.5); Red Blood Cell (RBC) Count 3.87 mill/uL (4.20-5.40); White Blood Cell (WBC) Count 9.1 thou/uL (4.8-10.8)
[2021-02-24 19:26] LABS: Anion Gap 12 mmol/L (10-20); BUN (Urea Nitrogen) 17 mg/dL (9.8-20.1); Calc. Creatinine Clearance 49 mL/min (70-130); Calcium 8.9 mg/dL (7.8-10.44); Carbon Dioxide 33 mmol/L (23-31); Chloride 92 mmol/L (98-107); Glucose 125 mg/dL (83-110); Magnesium 1.5 mg/dL (1.6-2.6); Phosphorus 2.9 mg/dL (2.3-4.7); Potassium 3.9 mmol/L (3.5-5.1); Sodium 133 mmol/L (136-145)
[2021-02-24] MEDS ORDERED: Polyethylene Glycol 3350 17 GM Packet PO SCH (20:00)
[2021-02-24] MEDS ORDERED: Magnesium Sulfate 3 GM in Sodium Chloride 0.9% 250 ML 250 ML IVPB SCH (20:00)
[2021-02-24] MEDS: Famotidine 20 MG TAB PO SCH (20:43)
[2021-02-24] MEDS: Ezetimibe 10 MG TAB PO SCH (20:43)
[2021-02-24] MEDS: Famotidine/PF 20 mg/2ml Vial SLOW IVP SCH (20:44)
[2021-02-24] MEDS: Senokot S 8.6-50 MG TAB PO SCH (20:44)
[2021-02-24] MEDS: Enoxaparin Sodium 30 MG/0.3 ML SYRINGE SC SCH (21:44)
[2021-02-25] MEDS: Morphine 4 MG/ML VIAL SLOW IVP PRN ×2 (02:14→06:28)
[2021-02-25] MEDS: Levothyroxine Sodium 75 MCG TAB PO SCH (05:12)
[2021-02-25 05:44] LABS: #Basophils 0.1 thou/uL (0.0-0.2); #Eosinphils 0.1 thou/uL (0.0-0.7); #Lymphocytes 1.7 thou/uL (1.20-3.40); #Monocytes 0.7 thou/uL (0.11-0.59); #Neutrophils 5.1 thou/uL (1.40-6.50); %Eosinophils 1.7 % (0.0-10.0); %Lymphocytes 21.7 % (21.0-51.0); %Neutrophils 66.5 % (42.0-75.0); Hemoglobin 12.4 g/dL (12.0-16.0); Mean Corpuscular HGB CONC 33.3 g/dL (32.0-36.0); Mean Corpuscular Hemoglobin 30.9 pg (27.0-31.0); Mean Corpuscular Volume 92.9 fL (78.0-98.0); Mean Platelet Volume 6.4 fL (7.4-10.4); Platelet Count 330 thou/uL (130-400); RBC Distribution Width 13.7 % (11.5-14.5); Red Blood Cell (RBC) Count 3.99 mill/uL (4.20-5.40); White Blood Cell (WBC) Count 7.7 thou/uL (4.8-10.8)
[2021-02-25 06:04] LABS: Anion Gap 11 mmol/L (10-20); BUN (Urea Nitrogen) 13 mg/dL (9.8-20.1); Calc. Creatinine Clearance 51 mL/min (70-130); Calcium 8.8 mg/dL (7.8-10.44); Carbon Dioxide 36 mmol/L (23-31); Chloride 92 mmol/L (98-107); Glucose 89 mg/dL (83-110); Phosphorus 2.6 mg/dL (2.3-4.7); Potassium 4.5 mmol/L (3.5-5.1); Sodium 134 mmol/L (136-145)
[2021-02-25] MEDS ORDERED: Polyethylene Glycol 3350 17 GM Packet PO SCH (09:00)
[2021-02-25] MEDS: Gabapentin 300 MG CAP PO SCH ×2 (10:40→19:32)
[2021-02-25] MEDS: Furosemide 40 MG TAB PO SCH ×2 (10:40→13:25)
[2021-02-25] MEDS: Senokot S 8.6-50 MG TAB PO SCH ×2 (10:40→19:33)
[2021-02-25] MEDS: traMADol HCl 50 MG TAB PO PRN ×2 (12:47→19:27)
[2021-02-25] MEDS: Ezetimibe 10 MG TAB PO SCH (19:32)
[2021-02-25] MEDS: Famotidine 20 MG TAB PO SCH (19:32)
[2021-02-25] MEDS: Polyethylene Glycol 3350 17 GM Packet PO SCH (19:33)
[2021-02-25] MEDS: Enoxaparin Sodium 30 MG/0.3 ML SYRINGE SC SCH (19:57)
[2021-02-26] MEDS: traMADol HCl 50 MG TAB PO PRN ×2 (03:56→09:13)
[2021-02-26] MEDS: Levothyroxine Sodium 75 MCG TAB PO SCH (03:58)
[2021-02-26 05:14] LABS: Bacteria/HPF None Seen HPF (None Seen); Bilirubin Negative (Negative); Blood, Urine Negative (Negative); Clarity Clear (Clear); Glucose, Urine (Dipstick) Normal (Negative); Ketone, Urine Negative (Negative); Leukocyte Negative Leu/uL (Negative); Nitrite Negative (Negative); Protein, Urine (Dipstick) Negative (Neg-Trace); Specific Gravity, Urine 1.007 (1.002-1.036); Squamous Epithelial None Seen HPF (0-3); Urobilinogen Normal mg/dL (Less than 2); WBC/HPF 0-3 HPF (0-3); pH, Urine 7.5 (5.0-9.0)
[2021-02-26 05:20] LABS: Urine Culture Reflex No No
[2021-02-26 05:59] LABS: Magnesium 1.7 mg/dL (1.6-2.6)
[2021-02-26] MEDS: Gabapentin 300 MG CAP PO SCH (08:50)
[2021-02-26] MEDS: Polyethylene Glycol 3350 17 GM Packet PO SCH (08:50)
[2021-02-26] MEDS: Furosemide 40 MG TAB PO SCH ×2 (08:50→15:23)
[2021-02-26] MEDS: Senokot S 8.6-50 MG TAB PO SCH (08:50)
[2021-02-26 09:23] LABS: Bacteria/HPF None Seen HPF (None Seen); Bilirubin Negative (Negative); Blood, Urine Negative (Negative); Clarity Clear (Clear); Glucose, Urine (Dipstick) Normal (Negative); Ketone, Urine Negative (Negative); Leukocyte Negative Leu/uL (Negative); Nitrite Negative (Negative); Protein, Urine (Dipstick) Negative (Neg-Trace); RBC/HPF 0-3 HPF (0-3); Specific Gravity, Urine 1.009 (1.002-1.036); Squamous Epithelial 0-3 HPF (0-3); Urobilinogen Normal mg/dL (Less than 2); WBC/HPF 0-3 HPF (0-3)
[2021-02-26 12:34] VITALS: BP 166/80; TEMP 97.5
[2021-02-26] MEDS ORDERED: Apixaban 5 MG TAB PO SCH (21:00)
== END 2021-02-26 15:55 | disposition home or self-care (01) | DRG 329 ==
LOC: SURG A 02-19 05:55 → SJJU 02-19 19:56 → 2NO 02-21 19:34
PROVIDERS: ADMIT Specialist; ATTEND Specialist
PROC: 0DBN4ZZ Excision of Sigmoid Colon, Percutaneous Endoscopic Approach (ICD-10-PCS; principal; 2021-02-19)
PROC: 0DQP4ZZ Repair Rectum, Percutaneous Endoscopic Approach (ICD-10-PCS; 2021-02-19)
DX: K62.3 Rectal prolapse (principal); I50.33 Acute on chronic diastolic (congestive) heart failure; I13.0 Hypertensive heart and chronic kidney disease with heart failure and stage 1 through stage 4 chronic kidney disease, or unspecified chronic kidney disease; I48.20 Chronic atrial fibrillation, unspecified; E87.1 Hypo-osmolality and hyponatremia; E87.2 Acidosis; N17.9 Acute kidney failure, unspecified; E86.1 Hypovolemia; E87.5 Hyperkalemia; E03.9 Hypothyroidism, unspecified; Z96.641 Presence of right artificial hip joint; N18.30 Chronic kidney disease, stage 3 unspecified; E88.09 Other disorders of plasma-protein metabolism, not elsewhere classified; I73.9 Peripheral vascular disease, unspecified; G89.29 Other chronic pain; J44.9 Chronic obstructive pulmonary disease, unspecified; E78.5 Hyperlipidemia, unspecified; J98.2 Interstitial emphysema; R33.9 Retention of urine, unspecified; Z90.49 Acquired absence of other specified parts of digestive tract; Z90.710 Acquired absence of both cervix and uterus; Z88.8 Allergy status to other drugs, medicaments and biological substances; Z91.030 Bee allergy status; Z91.041 Radiographic dye allergy status; Z91.040 Latex allergy status
CPT/HCPCS: 36415; 36416; 71045; 74019; 74176; 80048; 80053; 81001; 82533; 83735; 83880; 83930; 83935; 84100; 84300; 84443; 85025; 88309; 93005; 93010; 93306; A4649; C1776; J0360; J0694; J1100; J1650; J1815; J1885; J1940; J2001; J2250; J2270; J2370; J2405; J2704; J3010; J3475; J3480; J3490; J7050; S0020; S0028

== ENCOUNTER 2021-06-18 10:28 | Inpatient (IN) | payer MEDICARE ==
[2021-06-18 11:09] LABS: Actual Bicarbonate (HCO3a) 17.5 mEq/L (22-28); Analyzer IN Cardio ER; Base Excess (BEa) -7.9 mEq/L (-2.0 to +3.0); CO2 Tension 35.9 mmHg (35.0-45.0); Calcium, Ionized (arterial) 1.08 mmol/L (1.12-1.30); Carboxyhemoglobin (COHb) 0.7 gm% (0.0-3.0); Hemoglobin (Hb) 12.3 g/dL (12.0-16.0); O2 Tension (PaO2), arterial 89.5 mmHg (> 60.0); Potassium - ABG Lab 5.45 mmol/L (3.70-5.30); Puncture Site RRA; pH, Arterial 7.31 (7.35-7.45)
[2021-06-18 11:10] LABS: ALV-art Gradient 122.305 mmHg (0-20)
[2021-06-18 11:43] LABS: Albumin 3.2 g/dL (3.4-4.8); Alkaline Phosphatase 152 U/L (40-110); Calcium 8.8 mg/dL (7.8-10.44)
[2021-06-18 11:44] LABS: Bilirubin, Total 1.6 mg/dL (0.2-1.2); Globulin 3.1 g/dL (2.4-3.5); Lipase 52 U/L (8-78); Protein, Total 6.3 g/dL (5.8-8.1)
[2021-06-18 11:45] LABS: BUN (Urea Nitrogen) 37 mg/dL (9.8-20.1)
[2021-06-18 11:49] LABS: Carbon Dioxide 15 mmol/L (23-31)
[2021-06-18 11:53] LABS: ALT (SGPT) 376 U/L (8-55); AST (SGOT) 439 U/L (5-34)
[2021-06-18 12:06] LABS: Anion Gap 23 mmol/L (10-20); Calc. Creatinine Clearance 0 mL/min (70-130); Chloride 100 mmol/L (98-107); Glucose 27 mg/dL (83-110); Potassium 6.2 mmol/L (3.5-5.1); Sodium 135 mmol/L (136-145)
[2021-06-18 12:15] LABS: #Lymphocytes 0.6 thou/uL (1.20-3.40); #Monocytes 1.2 thou/uL (0.11-0.59); #Neutrophils 13.9 thou/uL (1.40-6.50); %Basophils 0.1 % (0.0-1.0); %Eosinophils 0.1 % (0.0-10.0); %Monocytes 7.8 % (0.0-10.0); Hemoglobin 12.4 g/dL (12.0-16.0); Mean Corpuscular HGB CONC 28.7 g/dL (32.0-36.0); Mean Corpuscular Hemoglobin 26.6 pg (27.0-31.0); Mean Corpuscular Volume 92.7 fL (78.0-98.0); Mean Platelet Volume 7.1 fL (7.4-10.4); Platelet Count 341 thou/uL (130-400); RBC Distribution Width 14.5 % (11.5-14.5); Red Blood Cell (RBC) Count 4.66 mill/uL (4.20-5.40); White Blood Cell (WBC) Count 15.8 thou/uL (4.8-10.8)
[2021-06-18] MEDS ORDERED: Calcium Chloride 1 GM/10 ML Abboject SYRINGE ONE (12:55)
[2021-06-18] MEDS ORDERED: Furosemide 40 MG/4 ML VIAL ONE (12:55)
[2021-06-18] MEDS ORDERED: Vancomycin 1 GM/200 ML BAG ONE (12:55)
[2021-06-18] MEDS ORDERED: Albuterol Sulfate 2.5 mg/3 ml Neb ONE (13:10)
[2021-06-18] MEDS ORDERED: Albuterol Sulfate 2.5 mg/0.5 ml Neb ONE (13:10)
[2021-06-18] MEDS ORDERED: Hydrocortisone Sod Succ/PF 100 mg/2 ml Vial ONE (13:30)
[2021-06-18] MEDS ORDERED: Cefepime 2 GM VIAL ONE (13:49)
[2021-06-18 14:08] LABS: Bacteria/HPF 4+ HPF (None Seen); Bilirubin 1+ (Negative); Blood, Urine 1+ (Negative); Clarity Extra Turbid (Clear); Glucose, Urine (Dipstick) Normal (Negative); Ketone, Urine Negative (Negative); Leukocyte 500 Leu/uL (Negative); Nitrite Negative (Negative); Protein, Urine (Dipstick) 200 mg/dL (Neg-Trace); RBC/HPF 0-3 HPF (0-3); Specific Gravity, Urine 1.022 (1.002-1.036); Squamous Epithelial 0-3 HPF (0-3); Urobilinogen 6 mg/dL (Less than 2); WBC/HPF Greater than 50 HPF (0-3); pH, Urine 5.5 (5.0-9.0)
[2021-06-18 15:55] LABS: SARS-CoV-2 NAA Rapid Test DETECTED (NotDetected)
[2021-06-18] MEDS ORDERED: Sodium Bicarbonate 150 MEQ in Dextrose 5% in Water 1,000 ML IV SCH ×2 (17:00→17:19)
[2021-06-18 17:14] LABS: Lactic Acid 6.3 mmol/L (0.5-2.2)
[2021-06-18] MEDS ORDERED: Calcium Carbonate 500 MG ChewTAB PO PRN (17:20)
[2021-06-18] MEDS ORDERED: Acetaminophen 650 MG Suppository PR PRN (17:20)
[2021-06-18] MEDS ORDERED: Atropine Sulfate 1 mg/1 ml Vial IVP PRN (17:28)
[2021-06-18] MEDS ORDERED: Cefepime 1 GM in Sodium Chloride 0.9% 100 ML IVPB SCH (17:30)
[2021-06-18] MEDS ORDERED: Electrolyte Replacement Protocol 1 EACH FS PRN (17:45)
[2021-06-18] MEDS: Albumin 25% 25 GM/100 ML BOT IVPB SCH ×2 (18:26→23:13)
[2021-06-18 18:34] LABS: Magnesium 2.1 mg/dL (1.6-2.6); Phosphorus 6.6 mg/dL (2.3-4.7)
[2021-06-18] MEDS ORDERED: Dextrose 50% Abboject 50 ML SYRINGE SLOW IVP PRN (19:25)
[2021-06-18] MEDS ORDERED: Dextrose 5% in Water 1,000 ML IV PRN (19:25)
[2021-06-18] MEDS ORDERED: Albuterol 200 PUFF (6.7GM INHALER) INH PRN (19:36)
[2021-06-18 20:57] LABS: Anion Gap 24 mmol/L (10-20); BUN (Urea Nitrogen) 43 mg/dL (9.8-20.1); Calc. Creatinine Clearance 30 mL/min (70-130); Calcium 9.4 mg/dL (7.8-10.44); Carbon Dioxide 15 mmol/L (23-31); Chloride 101 mmol/L (98-107); Glucose 133 mg/dL (83-110); Potassium 5.8 mmol/L (3.5-5.1); Sodium 134 mmol/L (136-145)
[2021-06-18] MEDS: Albuterol 200 PUFF (6.7GM INHALER) INH SCH (21:33)
[2021-06-18] MEDS: Hydrocortisone Sod Succ/PF 100 mg/2 ml Vial IVP SCH (21:43)
[2021-06-18] MEDS: Enoxaparin Sodium 40 MG/0.4 ML SYRINGE SC SCH (21:43)
[2021-06-18] MEDS: Sodium Bicarbonate 150 MEQ in Dextrose 5% in Water 1,000 ML IV SCH (21:44)
[2021-06-19] MEDS: Albuterol 200 PUFF (6.7GM INHALER) INH SCH ×6 (01:57→22:51)
[2021-06-19 04:44] LABS: #Lymphocytes 0.5 thou/uL (1.20-3.40); #Monocytes 0.6 thou/uL (0.11-0.59); #Neutrophils 11.3 thou/uL (1.40-6.50); %Eosinophils 0.2 % (0.0-10.0); %Lymphocytes 3.7 % (21.0-51.0); %Monocytes 5.2 % (0.0-10.0); %Neutrophils 90.9 % (42.0-75.0); Hemoglobin 10.2 g/dL (12.0-16.0); Mean Corpuscular HGB CONC 30.8 g/dL (32.0-36.0); Mean Corpuscular Hemoglobin 27.3 pg (27.0-31.0); Mean Corpuscular Volume 88.7 fL (78.0-98.0); Mean Platelet Volume 7.8 fL (7.4-10.4); Platelet Count 207 thou/uL (130-400); RBC Distribution Width 14.3 % (11.5-14.5); Red Blood Cell (RBC) Count 3.74 mill/uL (4.20-5.40); White Blood Cell (WBC) Count 12.4 thou/uL (4.8-10.8)
[2021-06-19 04:49] LABS: Phosphorus 5.7 mg/dL (2.3-4.7)
[2021-06-19 04:53] LABS: ALT (SGPT) 971 U/L (8-55); AST (SGOT) 1278 U/L (5-34); Albumin 3.8 g/dL (3.4-4.8); Alkaline Phosphatase 112 U/L (40-110); Anion Gap 15 mmol/L (10-20); BUN (Urea Nitrogen) 46 mg/dL (9.8-20.1); Calc. Creatinine Clearance 31 mL/min (70-130); Calcium 9.1 mg/dL (7.8-10.44); Carbon Dioxide 28 mmol/L (23-31); Chloride 97 mmol/L (98-107); Globulin 2.3 g/dL (2.4-3.5); Glucose 138 mg/dL (83-110); Potassium 4.8 mmol/L (3.5-5.1); Protein, Total 6.1 g/dL (5.8-8.1); Sodium 135 mmol/L (136-145)
[2021-06-19] MEDS ORDERED: Magnesium 2 GM/50 ML(in water) 2 GM in Premix Bag 1 BAG IVPB SCH (05:15)
[2021-06-19] MEDS: Albumin 25% 25 GM/100 ML BOT IVPB SCH ×3 (05:29→18:37)
[2021-06-19] MEDS: Hydrocortisone Sod Succ/PF 100 mg/2 ml Vial IVP SCH ×3 (05:29→21:27)
[2021-06-19] MEDS: Enoxaparin Sodium 40 MG/0.4 ML SYRINGE SC SCH ×2 (08:15→21:25)
[2021-06-19] MEDS ORDERED: Dextrose 10% in Water 250 ML IV PRN (08:26)
[2021-06-19 09:11] LABS: Lactic Acid 1.7 mmol/L (0.5-2.2)
[2021-06-19] MEDS: Gabapentin 300 MG CAP PO SCH ×2 (09:26→21:26)
[2021-06-19] MEDS: Aspirin 81 mg Enteric Coated Tablet PO SCH (09:26)
[2021-06-19] MEDS ORDERED: Furosemide 40 MG/4 ML VIAL SLOW IVP SCH (11:15)
[2021-06-19] MEDS: Mometasone 200 MCG/Formoterol 5 MCG 120 PUFF INHALER INH SCH ×2 (11:39→19:37)
[2021-06-19] MEDS: Sodium Bicarbonate 150 MEQ in Dextrose 5% in Water 1,000 ML IV SCH (11:40)
[2021-06-19] MEDS: Cefepime 1 GM in Sodium Chloride 0.9% 100 ML IVPB SCH (15:38)
[2021-06-19] MEDS ORDERED: Dexamethasone 4 mg/ml Vial SLOW IVP SCH ×2 (18:25→22:00)
[2021-06-19] MEDS ORDERED: Pantoprazole 40 MG VIAL IVP SCH ×3 (21:00→22:00)
[2021-06-19 21:04] LABS: SARS-CoV-2 PCR by NAA DETECTED (NotDetected)
[2021-06-19] MEDS: Simvastatin 10 MG TAB PO SCH (21:26)
[2021-06-19] MEDS: Ezetimibe 10 MG TAB PO SCH (21:26)
[2021-06-20] MEDS: Albuterol 200 PUFF (6.7GM INHALER) INH SCH ×6 (02:43→21:30)
[2021-06-20 03:43] LABS: #Lymphocytes 0.6 thou/uL (1.20-3.40); #Monocytes 0.4 thou/uL (0.11-0.59); #Neutrophils 12.5 thou/uL (1.40-6.50); %Eosinophils 0.1 % (0.0-10.0); %Lymphocytes 4.4 % (21.0-51.0); %Monocytes 2.8 % (0.0-10.0); %Neutrophils 92.7 % (42.0-75.0); Hemoglobin 10.3 g/dL (12.0-16.0); Mean Corpuscular HGB CONC 30.9 g/dL (32.0-36.0); Mean Corpuscular Hemoglobin 27.2 pg (27.0-31.0); Mean Corpuscular Volume 87.9 fL (78.0-98.0); Mean Platelet Volume 8.5 fL (7.4-10.4); Platelet Count 159 thou/uL (130-400); RBC Distribution Width 14.5 % (11.5-14.5); Red Blood Cell (RBC) Count 3.78 mill/uL (4.20-5.40); White Blood Cell (WBC) Count 13.5 thou/uL (4.8-10.8)
[2021-06-20 04:03] LABS: ALT (SGPT) 607 U/L (8-55); AST (SGOT) 435 U/L (5-34); Albumin 4.3 g/dL (3.4-4.8); Alkaline Phosphatase 117 U/L (40-110); Anion Gap 14 mmol/L (10-20); BUN (Urea Nitrogen) 45 mg/dL (9.8-20.1); Bilirubin, Total 0.9 mg/dL (0.2-1.2); Calc. Creatinine Clearance 27 mL/min (70-130); Calcium 9.3 mg/dL (7.8-10.44); Carbon Dioxide 28 mmol/L (23-31); Chloride 99 mmol/L (98-107); Globulin 2.1 g/dL (2.4-3.5); Glucose 116 mg/dL (83-110); Potassium 4.3 mmol/L (3.5-5.1); Protein, Total 6.4 g/dL (5.8-8.1); Sodium 137 mmol/L (136-145)
[2021-06-20] MEDS: Mometasone 200 MCG/Formoterol 5 MCG 120 PUFF INHALER INH SCH ×2 (06:22→18:13)
[2021-06-20] MEDS: Levothyroxine Sodium 75 MCG TAB PO SCH (06:22)
[2021-06-20] MEDS: Gabapentin 300 MG CAP PO SCH ×2 (07:33→21:24)
[2021-06-20] MEDS: Aspirin 81 mg Enteric Coated Tablet PO SCH (07:33)
[2021-06-20] MEDS: Enoxaparin Sodium 40 MG/0.4 ML SYRINGE SC SCH (07:33)
[2021-06-20] MEDS: Saccharomyces boulardii 250 MG CAP PO SCH (07:33)
[2021-06-20] MEDS ORDERED: Pantoprazole 40 MG VIAL IVP SCH (09:00)
[2021-06-20] MEDS ORDERED: Enoxaparin Sodium 60 MG/0.6 ML SYRINGE SC SCH (09:00)
[2021-06-20] MEDS: Acetaminophen 325 MG TAB PO PRN (16:16)
[2021-06-20] MEDS: Cefepime 1 GM in Sodium Chloride 0.9% 100 ML IVPB SCH (17:00)
[2021-06-20] MEDS ORDERED: Metoprolol Tartrate 5 MG/5 ML VIAL IVP PRN (17:04)
[2021-06-20] MEDS ORDERED: Apixaban 5 MG TAB PO SCH (21:00)
[2021-06-20] MEDS: Apixaban 5 MG TAB PO SCH (21:25)
[2021-06-20] MEDS: Simvastatin 10 MG TAB PO SCH (21:25)
[2021-06-20] MEDS: Ezetimibe 10 MG TAB PO SCH (21:25)
[2021-06-21] MEDS: Albuterol 200 PUFF (6.7GM INHALER) INH SCH ×6 (03:24→23:47)
[2021-06-21] MEDS: Levothyroxine Sodium 75 MCG TAB PO SCH (05:09)
[2021-06-21] MEDS: Mometasone 200 MCG/Formoterol 5 MCG 120 PUFF INHALER INH SCH ×2 (06:21→18:31)
[2021-06-21] MEDS: Dexamethasone 4 MG TAB PO SCH (07:39)
[2021-06-21] MEDS: Apixaban 5 MG TAB PO SCH ×2 (07:40→21:21)
[2021-06-21] MEDS: Gabapentin 300 MG CAP PO SCH ×2 (07:40→21:24)
[2021-06-21] MEDS: Saccharomyces boulardii 250 MG CAP PO SCH (07:40)
[2021-06-21] MEDS: Furosemide 40 MG/4 ML VIAL SLOW IVP SCH (07:40)
[2021-06-21] MEDS: Senokot S 8.6-50 MG TAB PO PRN (21:21)
[2021-06-21] MEDS: Simvastatin 10 MG TAB PO SCH (21:21)
[2021-06-21] MEDS: Ezetimibe 10 MG TAB PO SCH (21:24)
[2021-06-21] MEDS: traMADol HCl 50 MG TAB PO PRN (21:34)
[2021-06-22] MEDS: Albuterol 200 PUFF (6.7GM INHALER) INH SCH ×6 (01:43→23:10)
[2021-06-22] MEDS: Levothyroxine Sodium 75 MCG TAB PO SCH (05:23)
[2021-06-22] MEDS: Mometasone 200 MCG/Formoterol 5 MCG 120 PUFF INHALER INH SCH ×2 (05:28→17:18)
[2021-06-22] MEDS: Apixaban 5 MG TAB PO SCH ×2 (08:39→20:03)
[2021-06-22] MEDS: Gabapentin 300 MG CAP PO SCH ×2 (08:39→20:05)
[2021-06-22] MEDS: Spironolactone 25 MG TAB PO SCH (08:39)
[2021-06-22] MEDS: Dexamethasone 4 MG TAB PO SCH (08:39)
[2021-06-22] MEDS: Furosemide 40 MG/4 ML VIAL SLOW IVP SCH (08:40)
[2021-06-22] MEDS: Saccharomyces boulardii 250 MG CAP PO SCH (08:40)
[2021-06-22 10:07] LABS: Chloride 101 mmol/L (98-107); Sodium 140 mmol/L (136-145)
[2021-06-22 10:08] LABS: Calcium 9.3 mg/dL (7.8-10.44); Glucose 112 mg/dL (83-110)
[2021-06-22 10:10] LABS: Anion Gap 16 mmol/L (10-20); Carbon Dioxide 27 mmol/L (23-31)
[2021-06-22 10:12] LABS: BUN (Urea Nitrogen) 34 mg/dL (9.8-20.1); Calc. Creatinine Clearance 45 mL/min (70-130)
[2021-06-22 10:13] LABS: ALT (SGPT) 418 U/L (8-55); AST (SGOT) 142 U/L (5-34); Alkaline Phosphatase 153 U/L (40-110); Bilirubin, Direct 0.5 mg/dL (0.1-0.3); Bilirubin, Total 0.7 mg/dL (0.2-1.2); Magnesium 2.2 mg/dL (1.6-2.6); Protein, Total 6.8 g/dL (5.8-8.1)
[2021-06-22] MEDS: traMADol HCl 50 MG TAB PO PRN ×2 (14:46→23:11)
[2021-06-22] MEDS: Ezetimibe 10 MG TAB PO SCH (20:05)
[2021-06-22] MEDS: Simvastatin 10 MG TAB PO SCH (20:05)
[2021-06-23] MEDS: Albuterol 200 PUFF (6.7GM INHALER) INH SCH ×6 (02:52→22:29)
[2021-06-23] MEDS: Levothyroxine Sodium 75 MCG TAB PO SCH (06:10)
[2021-06-23] MEDS: Acetaminophen 325 MG TAB PO PRN (09:15)
[2021-06-23] MEDS: Dexamethasone 4 MG TAB PO SCH (09:16)
[2021-06-23] MEDS: Saccharomyces boulardii 250 MG CAP PO SCH (09:17)
[2021-06-23] MEDS: Apixaban 5 MG TAB PO SCH (09:17)
[2021-06-23] MEDS: Spironolactone 25 MG TAB PO SCH (09:17)
[2021-06-23] MEDS: Gabapentin 300 MG CAP PO SCH ×2 (09:17→20:48)
[2021-06-23] MEDS: Furosemide 40 MG/4 ML VIAL SLOW IVP SCH (09:21)
[2021-06-23] MEDS: Mometasone 200 MCG/Formoterol 5 MCG 120 PUFF INHALER INH SCH ×2 (10:18→17:58)
[2021-06-23] MEDS: Senokot S 8.6-50 MG TAB PO PRN (10:37)
[2021-06-23] MEDS: Ezetimibe 10 MG TAB PO SCH (20:47)
[2021-06-23] MEDS: Simvastatin 10 MG TAB PO SCH (20:54)
[2021-06-23] MEDS ORDERED: Enoxaparin Sodium 60 MG/0.6 ML SYRINGE SC SCH (21:00)
[2021-06-24] MEDS: Albuterol 200 PUFF (6.7GM INHALER) INH SCH ×5 (03:11→21:25)
[2021-06-24 03:52] LABS: Hemoglobin 11.5 g/dL (12.0-16.0); Platelet Count 224 thou/uL (130-400)
[2021-06-24 04:18] LABS: ALT (SGPT) 268 U/L (8-55); AST (SGOT) 66 U/L (5-34); Albumin 3.5 g/dL (3.4-4.8); Alkaline Phosphatase 146 U/L (40-110); Anion Gap 14 mmol/L (10-20); BUN (Urea Nitrogen) 29 mg/dL (9.8-20.1); Bilirubin, Total 0.8 mg/dL (0.2-1.2); Calc. Creatinine Clearance 52 mL/min (70-130); Carbon Dioxide 33 mmol/L (23-31); Chloride 95 mmol/L (98-107); Globulin 2.7 g/dL (2.4-3.5); Glucose 149 mg/dL (83-110); Protein, Total 6.2 g/dL (5.8-8.1); Sodium 138 mmol/L (136-145)
[2021-06-24] MEDS: Levothyroxine Sodium 75 MCG TAB PO SCH (06:32)
[2021-06-24] MEDS: Saccharomyces boulardii 250 MG CAP PO SCH (09:11)
[2021-06-24] MEDS: Senokot S 8.6-50 MG TAB PO PRN (09:11)
[2021-06-24] MEDS: Furosemide 40 MG/4 ML VIAL SLOW IVP SCH (09:11)
[2021-06-24] MEDS: Gabapentin 300 MG CAP PO SCH ×2 (09:12→21:14)
[2021-06-24] MEDS: Mometasone 200 MCG/Formoterol 5 MCG 120 PUFF INHALER INH SCH ×2 (09:12→21:27)
[2021-06-24] MEDS: Dexamethasone 4 MG TAB PO SCH (09:12)
[2021-06-24] MEDS: Spironolactone 25 MG TAB PO SCH (09:12)
[2021-06-24] MEDS ORDERED: Bisacodyl 5 MG TAB PO SCH (15:00)
[2021-06-24] MEDS ORDERED: Polyethylene Glycol 3350 17 GM Packet PO PRN (15:00)
[2021-06-24] MEDS ORDERED: Bisacodyl 10 MG SUPP PR PRN (15:00)
[2021-06-24] MEDS: Apixaban 2.5 MG TAB PO SCH (21:17)
[2021-06-24] MEDS: Ezetimibe 10 MG TAB PO SCH (21:17)
[2021-06-24] MEDS: Simvastatin 10 MG TAB PO SCH (21:44)
[2021-06-24] MEDS: traMADol HCl 50 MG TAB PO PRN (21:45)
[2021-06-25] MEDS: Albuterol 200 PUFF (6.7GM INHALER) INH SCH ×6 (03:28→17:51)
[2021-06-25] MEDS: Levothyroxine Sodium 75 MCG TAB PO SCH (06:05)
[2021-06-25] MEDS: traMADol HCl 50 MG TAB PO PRN ×2 (06:06→22:13)
[2021-06-25] MEDS: Mometasone 200 MCG/Formoterol 5 MCG 120 PUFF INHALER INH SCH ×2 (06:08→17:51)
[2021-06-25 06:35] LABS: #Basophils 0.1 thou/uL (0.0-0.2); #Monocytes 0.8 thou/uL (0.11-0.59); #Neutrophils 11.6 thou/uL (1.40-6.50); %Basophils 0.4 % (0.0-1.0); %Lymphocytes 7.4 % (21.0-51.0); %Monocytes 6.2 % (0.0-10.0); %Neutrophils 85.9 % (42.0-75.0); Hemoglobin 11.6 g/dL (12.0-16.0); Mean Corpuscular HGB CONC 30.8 g/dL (32.0-36.0); Mean Corpuscular Hemoglobin 27.5 pg (27.0-31.0); Mean Corpuscular Volume 89.2 fL (78.0-98.0); Mean Platelet Volume 7.9 fL (7.4-10.4); Platelet Count 222 thou/uL (130-400); RBC Distribution Width 14.9 % (11.5-14.5); Red Blood Cell (RBC) Count 4.23 mill/uL (4.20-5.40); White Blood Cell (WBC) Count 13.5 thou/uL (4.8-10.8)
[2021-06-25 06:53] LABS: Anion Gap 13 mmol/L (10-20); BUN (Urea Nitrogen) 29 mg/dL (9.8-20.1); Calc. Creatinine Clearance 46 mL/min (70-130); Carbon Dioxide 35 mmol/L (23-31); Chloride 96 mmol/L (98-107); Glucose 107 mg/dL (83-110); Potassium 5.1 mmol/L (3.5-5.1); Sodium 139 mmol/L (136-145)
[2021-06-25] MEDS: Polyethylene Glycol 3350 17 GM Packet PO SCH (08:28)
[2021-06-25] MEDS: Dexamethasone 4 MG TAB PO SCH (08:28)
[2021-06-25] MEDS: Saccharomyces boulardii 250 MG CAP PO SCH (08:28)
[2021-06-25] MEDS: Spironolactone 25 MG TAB PO SCH (08:28)
[2021-06-25] MEDS: Furosemide 40 MG/4 ML VIAL SLOW IVP SCH (08:28)
[2021-06-25] MEDS: Apixaban 2.5 MG TAB PO SCH ×2 (08:29→21:27)
[2021-06-25] MEDS: Gabapentin 300 MG CAP PO SCH ×2 (08:29→21:27)
[2021-06-25] MEDS: Simvastatin 10 MG TAB PO SCH (21:27)
[2021-06-25] MEDS: Ezetimibe 10 MG TAB PO SCH (21:27)
[2021-06-26 04:51] LABS: ALT (SGPT) 216 U/L (8-55); AST (SGOT) 90 U/L (5-34); Albumin 3.7 g/dL (3.4-4.8); Alkaline Phosphatase 129 U/L (40-110); Anion Gap 16 mmol/L (10-20); BUN (Urea Nitrogen) 35 mg/dL (9.8-20.1); Calc. Creatinine Clearance 46 mL/min (70-130); Calcium 9.4 mg/dL (7.8-10.44); Carbon Dioxide 32 mmol/L (23-31); Chloride 93 mmol/L (98-107); Globulin 3.4 g/dL (2.4-3.5); Glucose 101 mg/dL (83-110); Magnesium 2.3 mg/dL (1.6-2.6); Potassium 5.3 mmol/L (3.5-5.1); Protein, Total 7.1 g/dL (5.8-8.1); Sodium 136 mmol/L (136-145)
[2021-06-26] MEDS: Levothyroxine Sodium 75 MCG TAB PO SCH (06:42)
[2021-06-26] MEDS: Spironolactone 25 MG TAB PO SCH (09:22)
[2021-06-26] MEDS: Albuterol 200 PUFF (6.7GM INHALER) INH SCH ×3 (09:23→20:56)
[2021-06-26] MEDS: Saccharomyces boulardii 250 MG CAP PO SCH (09:29)
[2021-06-26] MEDS: Gabapentin 300 MG CAP PO SCH ×2 (09:29→20:51)
[2021-06-26] MEDS: Apixaban 2.5 MG TAB PO SCH ×2 (09:29→20:50)
[2021-06-26] MEDS: Furosemide 40 MG/4 ML VIAL SLOW IVP SCH (09:30)
[2021-06-26] MEDS: Dexamethasone 4 MG TAB PO SCH (09:30)
[2021-06-26] MEDS: Polyethylene Glycol 3350 17 GM Packet PO SCH (09:32)
[2021-06-26] MEDS: Mometasone 200 MCG/Formoterol 5 MCG 120 PUFF INHALER INH SCH ×2 (10:23→20:56)
[2021-06-26 13:37] VITALS: BMI 18.3
[2021-06-26] MEDS: Simvastatin 10 MG TAB PO SCH (20:50)
[2021-06-26] MEDS: Ezetimibe 10 MG TAB PO SCH (20:50)
[2021-06-27] MEDS: Albuterol 200 PUFF (6.7GM INHALER) INH SCH ×7 (03:55→22:49)
[2021-06-27 04:07] LABS: Hemoglobin 11.7 g/dL (12.0-16.0); Platelet Count 264 thou/uL (130-400)
[2021-06-27] MEDS: Levothyroxine Sodium 75 MCG TAB PO SCH (06:40)
[2021-06-27] MEDS: Mometasone 200 MCG/Formoterol 5 MCG 120 PUFF INHALER INH SCH ×2 (06:40→18:05)
[2021-06-27] MEDS: Dexamethasone 4 MG TAB PO SCH (09:49)
[2021-06-27] MEDS: Polyethylene Glycol 3350 17 GM Packet PO SCH (09:49)
[2021-06-27] MEDS: Apixaban 2.5 MG TAB PO SCH ×2 (09:49→21:17)
[2021-06-27] MEDS: Saccharomyces boulardii 250 MG CAP PO SCH (09:49)
[2021-06-27] MEDS: Gabapentin 300 MG CAP PO SCH ×2 (09:50→21:17)
[2021-06-27] MEDS: Furosemide 40 MG/4 ML VIAL SLOW IVP SCH (09:50)
[2021-06-27 13:35] VITALS: BP 135/96
[2021-06-27] MEDS ORDERED: Xylocaine 1% w/ Epi 1:100K 10 ML VIAL ONE (13:39)
[2021-06-27 17:24] LABS: Fluid, pH - Pleural Fld Greater than 7.50 (7.60 - 7.66)
[2021-06-27 18:01] LABS: Pleural Fluid, Amylase Less than 30 U/L (Not Available); Pleural Fluid, Glucose 127 mg/dL; Pleural Fluid, LDH 53 U/L (Not Available); Pleural Fluid, Protein 1.7 g/dL
[2021-06-27 18:12] LABS: ALT (SGPT) 168 U/L (8-55); ALT (SGPT) 169 U/L (8-55); AST (SGOT) 51 U/L (5-34); AST (SGOT) 54 U/L (5-34); Albumin 3.8 g/dL (3.4-4.8); Albumin 3.9 g/dL (3.4-4.8); Alkaline Phosphatase 144 U/L (40-110); Alkaline Phosphatase 147 U/L (40-110); Anion Gap 12 mmol/L (10-20); BUN (Urea Nitrogen) 36 mg/dL (9.8-20.1); Bilirubin, Direct 0.5 mg/dL (0.1-0.3); Calc. Creatinine Clearance 43 mL/min (70-130); Carbon Dioxide 37 mmol/L (23-31); Chloride 89 mmol/L (98-107); Globulin 2.7 g/dL (2.4-3.5); Glucose 165 mg/dL (83-110); Magnesium 2.1 mg/dL (1.6-2.6); Phosphorus 3.6 mg/dL (2.3-4.7); Potassium 4.1 mmol/L (3.5-5.1); Protein, Total 6.6 g/dL (5.8-8.1); Protein, Total 6.7 g/dL (5.8-8.1); Sodium 134 mmol/L (136-145)
[2021-06-27 18:20] LABS: RBC Count-Automated (BF) 234 /cu.mm; WBC/Nucleated-Auto (BF) 103 /cu.mm
[2021-06-27 18:22] LABS: BF Color Yellow; Body Fluid Source Pleural Fluid; Clarity Hazy (Clear); Tube # EDTA
[2021-06-27 18:43] LABS: BF Segmented Neutrophils 26 %; Cell Count Non Hematic 23 %; Lymphocytes 51 %
[2021-06-27] MEDS: Ezetimibe 10 MG TAB PO SCH (21:17)
[2021-06-27] MEDS: Simvastatin 10 MG TAB PO SCH (21:22)
[2021-06-27] MEDS: traMADol HCl 50 MG TAB PO PRN (21:22)
[2021-06-28] MEDS: Albuterol 200 PUFF (6.7GM INHALER) INH SCH ×2 (01:49→07:33)
[2021-06-28] MEDS: Levothyroxine Sodium 75 MCG TAB PO SCH (06:13)
[2021-06-28 06:29] LABS: #Lymphocytes 0.9 thou/uL (1.20-3.40); #Monocytes 0.6 thou/uL (0.11-0.59); #Neutrophils 15.6 thou/uL (1.40-6.50); %Basophils 0.2 % (0.0-1.0); %Eosinophils 0.1 % (0.0-10.0); %Lymphocytes 5.5 % (21.0-51.0); %Monocytes 3.7 % (0.0-10.0); %Neutrophils 90.7 % (42.0-75.0); Mean Corpuscular HGB CONC 30.4 g/dL (32.0-36.0); Mean Corpuscular Hemoglobin 26.4 pg (27.0-31.0); Mean Platelet Volume 7.7 fL (7.4-10.4); Platelet Count 291 thou/uL (130-400); RBC Distribution Width 15.3 % (11.5-14.5); Red Blood Cell (RBC) Count 4.55 mill/uL (4.20-5.40); White Blood Cell (WBC) Count 17.2 thou/uL (4.8-10.8)
[2021-06-28 06:51] LABS: ALT (SGPT) 174 U/L (8-55); AST (SGOT) 56 U/L (5-34); Albumin 4.3 g/dL (3.4-4.8); Alkaline Phosphatase 146 U/L (40-110); Anion Gap 14 mmol/L (10-20); BUN (Urea Nitrogen) 32 mg/dL (9.8-20.1); Bilirubin, Total 1.2 mg/dL (0.2-1.2); Calc. Creatinine Clearance 48 mL/min (70-130); Calcium 9.5 mg/dL (7.8-10.44); Carbon Dioxide 35 mmol/L (23-31); Chloride 88 mmol/L (98-107); Glucose 110 mg/dL (83-110); Magnesium 2.2 mg/dL (1.6-2.6); Phosphorus 3.6 mg/dL (2.3-4.7); Potassium 4.4 mmol/L (3.5-5.1); Protein, Total 7.3 g/dL (5.8-8.1); Sodium 133 mmol/L (136-145)
[2021-06-28] MEDS: Dexamethasone 4 MG TAB PO SCH (07:32)
[2021-06-28] MEDS: Gabapentin 300 MG CAP PO SCH (07:32)
[2021-06-28] MEDS: Polyethylene Glycol 3350 17 GM Packet PO SCH (07:33)
[2021-06-28] MEDS: Saccharomyces boulardii 250 MG CAP PO SCH (07:33)
[2021-06-28] MEDS: Furosemide 40 MG/4 ML VIAL SLOW IVP SCH (07:33)
[2021-06-28] MEDS: Apixaban 2.5 MG TAB PO SCH (07:33)
[2021-06-28] MEDS: Mometasone 200 MCG/Formoterol 5 MCG 120 PUFF INHALER INH SCH (07:34)
[2021-06-28] MEDS: traMADol HCl 50 MG TAB PO PRN (07:35)
[2021-06-28 07:52] VITALS: TEMP 98
== END 2021-06-28 09:42 | disposition swing bed (61) | DRG 871 ==
LOC: ERS 10:28 → IMCU/EMU 15:19
PROVIDERS: ADMIT Internal Medicine; ATTEND Internal Medicine
PROC: 3E03329 Introduction of Other Anti-infective into Peripheral Vein, Percutaneous Approach (ICD-10-PCS; principal; 2021-06-18)
PROC: 8E0ZXY6 Isolation (ICD-10-PCS; 2021-06-18)
PROC: 0W993ZZ Drainage of Right Pleural Cavity, Percutaneous Approach (ICD-10-PCS; 2021-06-27)
DX: A41.51 Sepsis due to Escherichia coli [E. coli] (principal); Z66 Do not resuscitate; U07.1 COVID-19; G92.8 Other toxic encephalopathy; I50.33 Acute on chronic diastolic (congestive) heart failure; J12.82 Pneumonia due to coronavirus disease 2019; J96.01 Acute respiratory failure with hypoxia; N17.9 Acute kidney failure, unspecified; E87.1 Hypo-osmolality and hyponatremia; E87.2 Acidosis; N39.0 Urinary tract infection, site not specified; I13.0 Hypertensive heart and chronic kidney disease with heart failure and stage 1 through stage 4 chronic kidney disease, or unspecified chronic kidney disease; I48.19 Other persistent atrial fibrillation; J91.8 Pleural effusion in other conditions classified elsewhere; R00.1 Bradycardia, unspecified; G89.4 Chronic pain syndrome; N18.30 Chronic kidney disease, stage 3 unspecified; E87.5 Hyperkalemia; E16.2 Hypoglycemia, unspecified; I25.10 Atherosclerotic heart disease of native coronary artery without angina pectoris; E03.9 Hypothyroidism, unspecified; J44.9 Chronic obstructive pulmonary disease, unspecified; E78.5 Hyperlipidemia, unspecified; R33.9 Retention of urine, unspecified; Z88.2 Allergy status to sulfonamides; Z88.8 Allergy status to other drugs, medicaments and biological substances; Z91.030 Bee allergy status; Z91.041 Radiographic dye allergy status; Z91.040 Latex allergy status; Z79.899 Other long term (current) drug therapy; Z79.890 Hormone replacement therapy; Z79.82 Long term (current) use of aspirin; Z79.01 Long term (current) use of anticoagulants; Z86.16 Personal history of COVID-19; Z90.710 Acquired absence of both cervix and uterus; Z98.890 Other specified postprocedural states; Z80.0 Family history of malignant neoplasm of digestive organs; Z95.1 Presence of aortocoronary bypass graft; Z80.1 Family history of malignant neoplasm of trachea, bronchus and lung; Z87.891 Personal history of nicotine dependence
CPT/HCPCS: 36415; 36416; 36600; 51702; 70450; 71045; 74176; 80048; 80053; 80076; 81003; 81015; 82042; 82140; 82150; 82533; 82805; 82945; 83605; 83615; 83690; 83735; 83880; 84100; 84157; 84443; 84484; 85014; 85018; 85025; 85049; 85060; 86140; 87040; 87070; 87077; 87086; 87116; 87186; 87205; 87206; 88112; 88305; 89051; 93005; 94644; 94664; 96365; 96366; 96367; 96368; 96375; C9113; J0692; J1100; J1610; J1650; J1720; J1940; J3370; J3475; J3490; J7070; J7611; J7999; J8540; P9047; U0003; U0005

== ENCOUNTER 2021-07-01 15:46 | Inpatient (IN) | payer MEDICARE ==
[2021-07-01 21:25] VITALS: BMI 20.5
[2021-07-01] MEDS ORDERED: Acetaminophen 500 MG TAB PO PRN (21:47)
[2021-07-01 22:35] LABS: #Lymphocytes 0.8 thou/uL (1.20-3.40); #Monocytes 0.9 thou/uL (0.11-0.59); #Neutrophils 15.4 thou/uL (1.40-6.50); %Basophils 0.1 % (0.0-1.0); %Eosinophils 0.2 % (0.0-10.0); %Lymphocytes 4.8 % (21.0-51.0); %Monocytes 5.5 % (0.0-10.0); %Neutrophils 89.4 % (42.0-75.0); Hemoglobin 11.5 g/dL (12.0-16.0); Mean Corpuscular HGB CONC 30.4 g/dL (32.0-36.0); Mean Platelet Volume 7.9 fL (7.4-10.4); Platelet Count 275 thou/uL (130-400); RBC Distribution Width 16.3 % (11.5-14.5); Red Blood Cell (RBC) Count 4.24 mill/uL (4.20-5.40); White Blood Cell (WBC) Count 17.2 thou/uL (4.8-10.8)
[2021-07-01 22:57] LABS: ALT (SGPT) 119 U/L (8-55); AST (SGOT) 44 U/L (5-34); Albumin 3.4 g/dL (3.4-4.8); Alkaline Phosphatase 129 U/L (40-110); Anion Gap 16 mmol/L (10-20); BUN (Urea Nitrogen) 44 mg/dL (9.8-20.1); Bilirubin, Total 1.5 mg/dL (0.2-1.2); Calc. Creatinine Clearance 40 mL/min (70-130); Calcium 8.7 mg/dL (7.8-10.44); Carbon Dioxide 33 mmol/L (23-31); Chloride 92 mmol/L (98-107); Globulin 2.8 g/dL (2.4-3.5); Glucose 97 mg/dL (83-110); Potassium 4.3 mmol/L (3.5-5.1); Protein, Total 6.2 g/dL (5.8-8.1); Sodium 137 mmol/L (136-145)
[2021-07-01] MEDS ORDERED: Bisacodyl 10 MG SUPP PR PRN (23:41)
[2021-07-01] MEDS ORDERED: Furosemide 20 MG/2 ML VIAL SLOW IVP SCH (23:45)
[2021-07-01] MEDS ORDERED: Furosemide 40 MG/4 ML VIAL SLOW IVP SCH (23:59)
[2021-07-01] MEDS ORDERED: Mometasone 200 MCG/Formoterol 5 MCG 120 PUFF INHALER INH SCH (23:59)
[2021-07-02] MEDS: cefTRIAXone\\ROCEPHIN 2 GM in Sodium Chloride 0.9% 100 ML IVPB SCH ×2 (00:06→23:29)
[2021-07-02] MEDS: Vancomycin HCl 750 MG in Sodium Chloride 0.9% 250 ML 250 ML IVPB SCH (00:52)
[2021-07-02 01:16] LABS: Bacteria/HPF None Seen HPF (None Seen); Bilirubin Negative (Negative); Blood, Urine Negative (Negative); Clarity Clear (Clear); Glucose, Urine (Dipstick) Normal (Negative); Ketone, Urine Trace mg/dL (Negative); Leukocyte 75 Leu/uL (Negative); Nitrite Negative (Negative); Protein, Urine (Dipstick) 50 mg/dL (Neg-Trace); Specific Gravity, Urine 1.023 (1.002-1.036); Squamous Epithelial None Seen HPF (0-3); Urobilinogen Normal mg/dL (Less than 2); WBC/HPF 21-50 HPF (0-3); pH, Urine 5.5 (5.0-9.0)
[2021-07-02 01:18] LABS: Urine Culture Reflex Yes Yes
[2021-07-02] MEDS ORDERED: Morphine 2 MG/ML VIAL SLOW IVP SCH (01:30)
[2021-07-02 01:46] LABS: SARS-CoV-2 NAA Rapid Test Not Detected (NotDetected)
[2021-07-02 04:29] LABS: ALT (SGPT) 115 U/L (8-55); AST (SGOT) 37 U/L (5-34); Albumin 3.6 g/dL (3.4-4.8); Alkaline Phosphatase 126 U/L (40-110); BUN (Urea Nitrogen) 43 mg/dL (9.8-20.1); Bilirubin, Total 1.7 mg/dL (0.2-1.2); Calc. Creatinine Clearance 39 mL/min (70-130); Calcium 9.2 mg/dL (7.8-10.44); Globulin 2.7 g/dL (2.4-3.5); Glucose 105 mg/dL (83-110); Protein, Total 6.3 g/dL (5.8-8.1)
[2021-07-02 04:37] LABS: Band 15 % (5-11); Hemoglobin 12.1 g/dL (12.0-16.0); Lymphocytes 2 % (21-51); MDiff Complete? YES; Mean Corpuscular HGB CONC 30.7 g/dL (32.0-36.0); Mean Corpuscular Hemoglobin 27.3 pg (27.0-31.0); Mean Corpuscular Volume 89.1 fL (78.0-98.0); Mean Platelet Volume 7.7 fL (7.4-10.4); Monocytes 13 % (0-10); Neutrophil 70 % (42-75); Platelet Count 267 thou/uL (130-400); Platelet Morphology Comment Appears Adequate; RBC Distribution Width 16.7 % (11.5-14.5); Red Blood Cell (RBC) Count 4.42 mill/uL (4.20-5.40); White Blood Cell (WBC) Count 23.1 thou/uL (4.8-10.8)
[2021-07-02 05:08] LABS: Anion Gap 19 mmol/L (10-20); Carbon Dioxide 34 mmol/L (23-31); Chloride 90 mmol/L (98-107); Potassium 3.9 mmol/L (3.5-5.1); Sodium 139 mmol/L (136-145)
[2021-07-02] MEDS: Levothyroxine Sodium 75 MCG TAB PO SCH (05:26)
[2021-07-02] MEDS: Furosemide 20 MG/2 ML VIAL SLOW IVP SCH ×2 (05:27→13:43)
[2021-07-02 06:32] LABS: INR-International Normal Ratio 1.4; PTT 28.6 sec (22.9-36.1); Prothrombin Time 16.9 sec (12.0-14.7)
[2021-07-02] MEDS: Mometasone 200 MCG/Formoterol 5 MCG 120 PUFF INHALER INH SCH ×2 (07:09→18:36)
[2021-07-02] MEDS: Polyethylene Glycol 3350 17 GM Packet PO SCH (10:12)
[2021-07-02] MEDS ORDERED: Lidocaine 1% PF 5 ML VIAL ONE (10:52)
[2021-07-02] MEDS ORDERED: Sodium Bicarbonate 2.5 MEQ/5 ML VIAL ONE (10:52)
[2021-07-02 13:27] LABS: RBC Count-Automated (BF) 2318 /cu.mm; WBC/Nucleated-Auto (BF) 140 /cu.mm
[2021-07-02] MEDS: Morphine 2 MG/ML VIAL SLOW IVP PRN ×2 (13:42→18:10)
[2021-07-02 14:02] LABS: BF Color Yellow; Body Fluid Source Ascites Body Fluid; Clarity Hazy (Clear); Tube # EDTA
[2021-07-02 14:04] LABS: BF Segmented Neutrophils 24 %; Cell Count Non Hematic 36 %; Lymphocytes 40 %
[2021-07-02] MEDS: Ondansetron PF 4 MG/2 ML Vial IVP PRN (18:10)
[2021-07-02] MEDS: Apixaban 5 MG TAB PO SCH (20:08)
[2021-07-02] MEDS: Nystatin 500,000 UNITS/5 ML UDCUP SSP SCH (20:09)
[2021-07-02] MEDS ORDERED: predniSONE 50 MG TAB PO SCH (21:00)
[2021-07-02] MEDS ORDERED: Pantoprazole 40 MG VIAL IVP SCH (21:30)
[2021-07-02 21:39] LABS: Lactic Acid 2.4 mmol/L (0.5-2.2)
[2021-07-03] MEDS: Vancomycin HCl 750 MG in Sodium Chloride 0.9% 250 ML 250 ML IVPB SCH (02:18)
[2021-07-03] MEDS ORDERED: predniSONE 50 MG TAB PO SCH ×2 (03:00→09:00)
[2021-07-03] MEDS: Ondansetron PF 4 MG/2 ML Vial IVP PRN (03:26)
[2021-07-03 03:55] LABS: #Lymphocytes 0.3 thou/uL (1.20-3.40); #Monocytes 0.3 thou/uL (0.11-0.59); #Neutrophils 15.5 thou/uL (1.40-6.50); %Eosinophils 0.1 % (0.0-10.0); %Lymphocytes 1.6 % (21.0-51.0); %Monocytes 1.9 % (0.0-10.0); %Neutrophils 96.4 % (42.0-75.0); Hemoglobin 11.3 g/dL (12.0-16.0); Mean Corpuscular HGB CONC 30.3 g/dL (32.0-36.0); Mean Corpuscular Hemoglobin 26.9 pg (27.0-31.0); Mean Corpuscular Volume 88.9 fL (78.0-98.0); Mean Platelet Volume 7.8 fL (7.4-10.4); Platelet Count 245 thou/uL (130-400); RBC Distribution Width 16.5 % (11.5-14.5); Red Blood Cell (RBC) Count 4.21 mill/uL (4.20-5.40); White Blood Cell (WBC) Count 16.1 thou/uL (4.8-10.8)
[2021-07-03 04:24] LABS: ALT (SGPT) 85 U/L (8-55); AST (SGOT) 26 U/L (5-34); Albumin 3.2 g/dL (3.4-4.8); Alkaline Phosphatase 116 U/L (40-110); Anion Gap 15 mmol/L (10-20); BUN (Urea Nitrogen) 38 mg/dL (9.8-20.1); Bilirubin, Total 1.1 mg/dL (0.2-1.2); Calc. Creatinine Clearance 46 mL/min (70-130); Calcium 8.8 mg/dL (7.8-10.44); Carbon Dioxide 37 mmol/L (23-31); Chloride 93 mmol/L (98-107); Globulin 2.6 g/dL (2.4-3.5); Glucose 133 mg/dL (83-110); Protein, Total 5.8 g/dL (5.8-8.1); Sodium 141 mmol/L (136-145)
[2021-07-03] MEDS: Levothyroxine Sodium 75 MCG TAB PO SCH (05:27)
[2021-07-03] MEDS: Furosemide 20 MG/2 ML VIAL SLOW IVP SCH ×2 (05:27→15:46)
[2021-07-03] MEDS: Mometasone 200 MCG/Formoterol 5 MCG 120 PUFF INHALER INH SCH ×2 (07:07→19:00)
[2021-07-03] MEDS: Nystatin 500,000 UNITS/5 ML UDCUP SSP SCH ×4 (08:12→21:49)
[2021-07-03] MEDS: Pantoprazole 40 MG VIAL IVP SCH ×2 (08:12→09:04)
[2021-07-03] MEDS: Apixaban 5 MG TAB PO SCH ×2 (08:12→21:50)
[2021-07-03] MEDS: Polyethylene Glycol 3350 17 GM Packet PO SCH ×2 (08:17→09:15)
[2021-07-03] MEDS ORDERED: diphenhydrAMINE 50 MG/ML VIAL ONE (10:49)
[2021-07-03] MEDS ORDERED: Magnesium Citrate 300 ML BOT PO SCH (18:15)
[2021-07-03] MEDS: Morphine 2 MG/ML VIAL SLOW IVP PRN (20:18)
[2021-07-04] MEDS: cefTRIAXone\\ROCEPHIN 2 GM in Sodium Chloride 0.9% 100 ML IVPB SCH (00:12)
[2021-07-04 00:28] LABS: Vancomycin, Trough 5.8 ug/mL
[2021-07-04] MEDS: Vancomycin HCl 750 MG in Sodium Chloride 0.9% 250 ML 250 ML IVPB SCH ×2 (01:13→13:52)
[2021-07-04 04:16] LABS: #Lymphocytes 0.7 thou/uL (1.20-3.40); #Monocytes 0.9 thou/uL (0.11-0.59); #Neutrophils 14.4 thou/uL (1.40-6.50); %Basophils 0.1 % (0.0-1.0); %Eosinophils 0.1 % (0.0-10.0); %Lymphocytes 4.3 % (21.0-51.0); %Monocytes 5.6 % (0.0-10.0); %Neutrophils 89.9 % (42.0-75.0); Mean Corpuscular HGB CONC 30.8 g/dL (32.0-36.0); Mean Corpuscular Hemoglobin 27.7 pg (27.0-31.0); Mean Platelet Volume 7.9 fL (7.4-10.4); Platelet Count 235 thou/uL (130-400); RBC Distribution Width 17.1 % (11.5-14.5); Red Blood Cell (RBC) Count 4.34 mill/uL (4.20-5.40)
[2021-07-04 04:41] LABS: ALT (SGPT) 75 U/L (8-55); AST (SGOT) 33 U/L (5-34); Albumin 3.3 g/dL (3.4-4.8); Alkaline Phosphatase 126 U/L (40-110); Anion Gap 16 mmol/L (10-20); BUN (Urea Nitrogen) 33 mg/dL (9.8-20.1); Bilirubin, Total 0.8 mg/dL (0.2-1.2); Calc. Creatinine Clearance 45 mL/min (70-130); Calcium 9.1 mg/dL (7.8-10.44); Carbon Dioxide 37 mmol/L (23-31); Chloride 91 mmol/L (98-107); Glucose 139 mg/dL (83-110); Potassium 4.2 mmol/L (3.5-5.1); Protein, Total 6.3 g/dL (5.8-8.1); Sodium 140 mmol/L (136-145)
[2021-07-04] MEDS: Furosemide 20 MG/2 ML VIAL SLOW IVP SCH ×2 (06:45→13:51)
[2021-07-04] MEDS: Levothyroxine Sodium 75 MCG TAB PO SCH (06:45)
[2021-07-04] MEDS: Mometasone 200 MCG/Formoterol 5 MCG 120 PUFF INHALER INH SCH ×2 (07:14→18:48)
[2021-07-04] MEDS: Apixaban 5 MG TAB PO SCH ×2 (10:13→20:59)
[2021-07-04] MEDS: Polyethylene Glycol 3350 17 GM Packet PO SCH (10:13)
[2021-07-04] MEDS: Pantoprazole 40 MG VIAL IVP SCH (10:13)
[2021-07-04] MEDS: Nystatin 500,000 UNITS/5 ML UDCUP SSP SCH ×4 (10:13→20:59)
[2021-07-04] MEDS ORDERED: Metoprolol Tartrate 5 MG/5 ML VIAL IVP SCH (23:45)
[2021-07-05] MEDS: Morphine 2 MG/ML VIAL SLOW IVP PRN ×2 (00:14→11:47)
[2021-07-05] MEDS: Vancomycin HCl 750 MG in Sodium Chloride 0.9% 250 ML 250 ML IVPB SCH ×2 (00:48→14:16)
[2021-07-05] MEDS: Levothyroxine Sodium 75 MCG TAB PO SCH (05:35)
[2021-07-05] MEDS: Furosemide 20 MG/2 ML VIAL SLOW IVP SCH (05:36)
[2021-07-05] MEDS: Mometasone 200 MCG/Formoterol 5 MCG 120 PUFF INHALER INH SCH ×2 (06:44→18:38)
[2021-07-05 08:18] LABS: #Lymphocytes 1.1 thou/uL (1.20-3.40); #Monocytes 0.8 thou/uL (0.11-0.59); #Neutrophils 9.2 thou/uL (1.40-6.50); %Basophils 0.2 % (0.0-1.0); %Eosinophils 0.2 % (0.0-10.0); %Lymphocytes 10.1 % (21.0-51.0); %Monocytes 7.2 % (0.0-10.0); %Neutrophils 82.3 % (42.0-75.0); Hemoglobin 11.5 g/dL (12.0-16.0); Mean Corpuscular HGB CONC 30.1 g/dL (32.0-36.0); Mean Corpuscular Hemoglobin 26.6 pg (27.0-31.0); Mean Corpuscular Volume 88.5 fL (78.0-98.0); Mean Platelet Volume 7.7 fL (7.4-10.4); Platelet Count 237 thou/uL (130-400); RBC Distribution Width 17.4 % (11.5-14.5); Red Blood Cell (RBC) Count 4.33 mill/uL (4.20-5.40); White Blood Cell (WBC) Count 11.1 thou/uL (4.8-10.8)
[2021-07-05 08:30] LABS: ALT (SGPT) 62 U/L (8-55); AST (SGOT) 25 U/L (5-34); Albumin 3.2 g/dL (3.4-4.8); Alkaline Phosphatase 113 U/L (40-110); BUN (Urea Nitrogen) 29 mg/dL (9.8-20.1); Bilirubin, Total 0.8 mg/dL (0.2-1.2); Calc. Creatinine Clearance 50 mL/min (70-130); Calcium 8.8 mg/dL (7.8-10.44); Globulin 2.5 g/dL (2.4-3.5); Glucose 81 mg/dL (83-110); Protein, Total 5.7 g/dL (5.8-8.1)
[2021-07-05 08:39] LABS: Anion Gap 13 mmol/L (10-20); Chloride 88 mmol/L (98-107); Potassium 4.1 mmol/L (3.5-5.1); Sodium 140 mmol/L (136-145)
[2021-07-05 08:42] LABS: Carbon Dioxide 43 mmol/L (23-31)
[2021-07-05] MEDS ORDERED: Furosemide 20 MG TAB PO SCH (09:15)
[2021-07-05] MEDS ORDERED: AcetaZOLAMIDE 250 MG TAB PO SCH (09:15)
[2021-07-05] MEDS: Polyethylene Glycol 3350 17 GM Packet PO SCH (09:21)
[2021-07-05] MEDS: Pantoprazole 40 MG VIAL IVP SCH (09:22)
[2021-07-05] MEDS: Apixaban 5 MG TAB PO SCH ×2 (09:22→21:44)
[2021-07-05] MEDS: Nystatin 500,000 UNITS/5 ML UDCUP SSP SCH ×4 (09:22→21:44)
[2021-07-05] MEDS ORDERED: Mineral Oil ENEMA PR SCH (11:00)
[2021-07-05 14:04] LABS: Vancomycin, Trough 17.4 ug/mL
[2021-07-05] MEDS: Furosemide 20 MG TAB PO SCH (14:16)
[2021-07-05] MEDS: AcetaZOLAMIDE 250 MG TAB PO SCH (21:44)
[2021-07-05] MEDS: Doxycycline 100 MG CAP PO SCH (21:44)
[2021-07-05] MEDS: cefTRIAXone\\ROCEPHIN 2 GM in Sodium Chloride 0.9% 100 ML IVPB SCH ×2 (23:17)
[2021-07-06 04:23] LABS: ALT (SGPT) 58 U/L (8-55); AST (SGOT) 26 U/L (5-34); Alkaline Phosphatase 121 U/L (40-110); Anion Gap 13 mmol/L (10-20); BUN (Urea Nitrogen) 27 mg/dL (9.8-20.1); Bilirubin, Total 0.6 mg/dL (0.2-1.2); Calc. Creatinine Clearance 48 mL/min (70-130); Calcium 8.4 mg/dL (7.8-10.44); Carbon Dioxide 36 mmol/L (23-31); Chloride 91 mmol/L (98-107); Globulin 2.6 g/dL (2.4-3.5); Glucose 99 mg/dL (83-110); Potassium 3.5 mmol/L (3.5-5.1); Protein, Total 5.6 g/dL (5.8-8.1); Sodium 136 mmol/L (136-145)
[2021-07-06 05:48] LABS: #Lymphocytes 1.2 thou/uL (1.20-3.40); #Monocytes 0.7 thou/uL (0.11-0.59); #Neutrophils 7.4 thou/uL (1.40-6.50); %Basophils 0.1 % (0.0-1.0); %Eosinophils 0.4 % (0.0-10.0); %Lymphocytes 12.5 % (21.0-51.0); Anisocytosis SLIGHT = 6-15 cells (100X) (0-5/hpf); Hemoglobin 11.6 g/dL (12.0-16.0); MDiff Complete? YES; Mean Corpuscular HGB CONC 29.3 g/dL (32.0-36.0); Mean Corpuscular Hemoglobin 26.8 pg (27.0-31.0); Mean Corpuscular Volume 91.5 fL (78.0-98.0); Mean Platelet Volume 7.7 fL (7.4-10.4); Platelet Count 211 thou/uL (130-400); RBC Distribution Width 17.5 % (11.5-14.5); Red Blood Cell (RBC) Count 4.33 mill/uL (4.20-5.40); White Blood Cell (WBC) Count 9.3 thou/uL (4.8-10.8)
[2021-07-06] MEDS: Levothyroxine Sodium 75 MCG TAB PO SCH (05:58)
[2021-07-06] MEDS: Mometasone 200 MCG/Formoterol 5 MCG 120 PUFF INHALER INH SCH ×2 (07:14→18:17)
[2021-07-06] MEDS: AcetaZOLAMIDE 250 MG TAB PO SCH ×2 (08:36→21:47)
[2021-07-06] MEDS: Nystatin 500,000 UNITS/5 ML UDCUP SSP SCH ×4 (08:36→21:47)
[2021-07-06] MEDS: Polyethylene Glycol 3350 17 GM Packet PO SCH (08:36)
[2021-07-06] MEDS: Doxycycline 100 MG CAP PO SCH ×2 (08:36→21:47)
[2021-07-06] MEDS: Apixaban 5 MG TAB PO SCH ×2 (08:36→21:47)
[2021-07-06] MEDS: Furosemide 20 MG TAB PO SCH ×2 (08:36→13:25)
[2021-07-06] MEDS: Pantoprazole 40 MG VIAL IVP SCH (08:37)
[2021-07-06] MEDS ORDERED: Mineral Oil ENEMA PR SCH (09:30)
[2021-07-06] MEDS: Morphine 2 MG/ML VIAL SLOW IVP PRN ×2 (17:39→21:43)
[2021-07-07] MEDS: cefTRIAXone\\ROCEPHIN 2 GM in Sodium Chloride 0.9% 100 ML IVPB SCH (01:50)
[2021-07-07] MEDS: Levothyroxine Sodium 75 MCG TAB PO SCH (04:46)
[2021-07-07] MEDS: Mometasone 200 MCG/Formoterol 5 MCG 120 PUFF INHALER INH SCH ×2 (07:31→18:33)
[2021-07-07] MEDS ORDERED: Mineral Oil ENEMA PR SCH (08:00)
[2021-07-07 08:15] LABS: #Eosinphils 0.1 thou/uL (0.0-0.7); #Monocytes 0.3 thou/uL (0.11-0.59); #Neutrophils 5.9 thou/uL (1.40-6.50); %Basophils 0.2 % (0.0-1.0); %Eosinophils 0.9 % (0.0-10.0); %Monocytes 4.7 % (0.0-10.0); %Neutrophils 81.2 % (42.0-75.0); Hemoglobin 11.5 g/dL (12.0-16.0); Mean Corpuscular HGB CONC 29.1 g/dL (32.0-36.0); Mean Corpuscular Hemoglobin 26.2 pg (27.0-31.0); Mean Platelet Volume 7.8 fL (7.4-10.4); Platelet Count 234 thou/uL (130-400); White Blood Cell (WBC) Count 7.3 thou/uL (4.8-10.8)
[2021-07-07 08:33] LABS: Anion Gap 13 mmol/L (10-20); BUN (Urea Nitrogen) 23 mg/dL (9.8-20.1); Calc. Creatinine Clearance 49 mL/min (70-130); Calcium 8.6 mg/dL (7.8-10.44); Carbon Dioxide 35 mmol/L (23-31); Chloride 93 mmol/L (98-107); Glucose 89 mg/dL (83-110); Potassium 3.6 mmol/L (3.5-5.1); Sodium 137 mmol/L (136-145)
[2021-07-07] MEDS: Furosemide 20 MG TAB PO SCH ×2 (09:02→14:02)
[2021-07-07] MEDS: Apixaban 5 MG TAB PO SCH ×2 (09:02→20:15)
[2021-07-07] MEDS: Polyethylene Glycol 3350 17 GM Packet PO SCH (09:02)
[2021-07-07] MEDS: Doxycycline 100 MG CAP PO SCH ×2 (09:02→20:16)
[2021-07-07] MEDS: Nystatin 500,000 UNITS/5 ML UDCUP SSP SCH ×4 (09:02→20:17)
[2021-07-07] MEDS: AcetaZOLAMIDE 250 MG TAB PO SCH ×2 (09:02→20:15)
[2021-07-07] MEDS: Pantoprazole 40 MG VIAL IVP SCH (09:03)
[2021-07-07] MEDS ORDERED: Bisacodyl 5 MG TAB PO SCH (16:45)
[2021-07-07] MEDS: Cefdinir 300 MG CAP PO SCH (20:16)
[2021-07-08 05:22] LABS: Anion Gap 9 mmol/L (10-20); BUN (Urea Nitrogen) 25 mg/dL (9.8-20.1); Calc. Creatinine Clearance 52 mL/min (70-130); Calcium 8.7 mg/dL (7.8-10.44); Carbon Dioxide 35 mmol/L (23-31); Chloride 94 mmol/L (98-107); Glucose 89 mg/dL (83-110); Potassium 3.1 mmol/L (3.5-5.1); Sodium 135 mmol/L (136-145)
[2021-07-08 05:31] LABS: #Lymphocytes 0.7 thou/uL (1.20-3.40); #Monocytes 0.4 thou/uL (0.11-0.59); #Neutrophils 6.4 thou/uL (1.40-6.50); %Basophils 0.1 % (0.0-1.0); %Eosinophils 0.4 % (0.0-10.0); %Lymphocytes 9.8 % (21.0-51.0); %Monocytes 5.4 % (0.0-10.0); %Neutrophils 84.3 % (42.0-75.0); Hemoglobin 11.1 g/dL (12.0-16.0); Mean Corpuscular HGB CONC 29.8 g/dL (32.0-36.0); Mean Corpuscular Hemoglobin 26.5 pg (27.0-31.0); Mean Corpuscular Volume 88.8 fL (78.0-98.0); Platelet Count 228 thou/uL (130-400); RBC Distribution Width 17.6 % (11.5-14.5); White Blood Cell (WBC) Count 7.6 thou/uL (4.8-10.8)
[2021-07-08] MEDS: Mometasone 200 MCG/Formoterol 5 MCG 120 PUFF INHALER INH SCH (07:14)
[2021-07-08 08:02] VITALS: TEMP 97.6
[2021-07-08] MEDS: Levothyroxine Sodium 75 MCG TAB PO SCH (08:21)
[2021-07-08] MEDS: AcetaZOLAMIDE 250 MG TAB PO SCH (08:22)
[2021-07-08] MEDS: Doxycycline 100 MG CAP PO SCH (08:23)
[2021-07-08] MEDS: Furosemide 20 MG TAB PO SCH ×2 (08:24→13:56)
[2021-07-08] MEDS: Nystatin 500,000 UNITS/5 ML UDCUP SSP SCH ×3 (08:25→18:16)
[2021-07-08] MEDS: Apixaban 5 MG TAB PO SCH (08:25)
[2021-07-08] MEDS: Polyethylene Glycol 3350 17 GM Packet PO SCH (08:26)
[2021-07-08] MEDS: Pantoprazole 40 MG VIAL IVP SCH (08:28)
[2021-07-08] MEDS: Cefdinir 300 MG CAP PO SCH (08:38)
[2021-07-08 13:26] VITALS: BP 113/60
[2021-07-08] MEDS: Potassium Bicarbonate/Cit Ac 20 MEQ TAB PO SCH ×2 (13:56→18:16)
== END 2021-07-08 17:45 | disposition swing bed (61) | DRG 871 ==
LOC: IMCU/EMU 21:00 → OBSVTOIN 21:41 → 2NO 07-03 09:03
PROVIDERS: ADMIT Internal Medicine; ATTEND Internal Medicine
PROC: 3E03329 Introduction of Other Anti-infective into Peripheral Vein, Percutaneous Approach (ICD-10-PCS; principal; 2021-07-01)
PROC: 0W9G3ZX Drainage of Peritoneal Cavity, Percutaneous Approach, Diagnostic (ICD-10-PCS; 2021-07-02)
DX: A41.9 Sepsis, unspecified organism (principal); Z66 Do not resuscitate; Z20.822 Contact with and (suspected) exposure to COVID-19; J69.0 Pneumonitis due to inhalation of food and vomit; I50.33 Acute on chronic diastolic (congestive) heart failure; J18.9 Pneumonia, unspecified organism; R18.8 Other ascites; E87.1 Hypo-osmolality and hyponatremia; E87.3 Alkalosis; B37.0 Candidal stomatitis; J96.11 Chronic respiratory failure with hypoxia; I11.0 Hypertensive heart disease with heart failure; I48.91 Unspecified atrial fibrillation; E03.9 Hypothyroidism, unspecified; E78.5 Hyperlipidemia, unspecified; J44.9 Chronic obstructive pulmonary disease, unspecified; G89.4 Chronic pain syndrome; M19.90 Unspecified osteoarthritis, unspecified site; Z96.641 Presence of right artificial hip joint; I34.0 Nonrheumatic mitral (valve) insufficiency; R13.10 Dysphagia, unspecified; I50.813 Acute on chronic right heart failure; Z88.2 Allergy status to sulfonamides; Z88.8 Allergy status to other drugs, medicaments and biological substances; Z91.030 Bee allergy status; Z91.041 Radiographic dye allergy status; Z91.040 Latex allergy status; Z79.899 Other long term (current) drug therapy; Z79.890 Hormone replacement therapy; Z79.82 Long term (current) use of aspirin; Z87.440 Personal history of urinary (tract) infections; Z95.1 Presence of aortocoronary bypass graft; Z86.16 Personal history of COVID-19; Z98.890 Other specified postprocedural states; Z90.710 Acquired absence of both cervix and uterus; Z90.49 Acquired absence of other specified parts of digestive tract; Z80.1 Family history of malignant neoplasm of trachea, bronchus and lung; Z80.0 Family history of malignant neoplasm of digestive organs
CPT/HCPCS: 36415; 36416; 49083; 71045; 74177; 74230; 80048; 80053; 80202; 81001; 82042; 82140; 83605; 83880; 84157; 85025; 85060; 85610; 85730; 87040; 87070; 87081; 87086; 87205; 87324; 87430; 87449; 88112; 88305; 89051; 94640; C9113; J0696; J1200; J1940; J2270; J2405; J3370; J3490; J7050; J7512; J7620